=== PATIENT | male | born 1965 | race African-American/Black ===

== ENCOUNTER 2019-03-04 13:39 | Inpatient (IN) | payer OTHER ==
[2019-03-04 15:55] VITALS: BMI 24.7
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
--- NOTE | 2019-03-04 17:19 | PN ---
Teaching Attending Note Name of Resident: Amie Washington ATTENDING PHYSICIAN STATEMENT I saw and evaluated the patient. I reviewed the resident's note and discussed the case with the resident. I agree with the resident's findings and plan as documented. SUBJECTIVE: 53 yo with no medical problems no medications. Here for heroin and alcohol detox- inhaling, about 5 bags/day, was in methadone MAT- he left becuase he did not like to go every day and did not like the taste of Suboxone. Also uses alcohol several beers/day. Occ cocaine use. JEANIE-0.68 OBJECTIVE: Vital Signs - 24 hr 03/04/19 15:42 Temperature 97.8 F Pulse Rate 75 Respiratory 18 Rate Blood Pressure 115/73 alert and oriented tremulous ASSESSMENT AND PLAN: Opioid use disorder- will start methadone detox alcohol use-pt with CIWA score of 0. will give prn Klonopin and if pt starts with withdrawals and high CIWA score- can start librium detox
[2019-03-04] MEDS ORDERED: METHOCARBAMOL 500 MG TABLET PO PRN (17:24)
[2019-03-04] MEDS ORDERED: MAGNESIUM CITRATE 300 ML BOTTLE PO PRN (17:24)
[2019-03-04] MEDS ORDERED: MAGNESIUM HYDROX 2400MG/30ML ORAL SUSPENSION 30 ML CUP PO PRN (17:24)
[2019-03-04] MEDS ORDERED: ACETAMINOPHEN 325 MG TABLET (FP) PO PRN ×2 (17:24)
[2019-03-04] MEDS ORDERED: BISMUTH SUBSALICYLATE 524 MG/30 ML UD PO PRN (17:24)
[2019-03-04] MEDS ORDERED: hydrOXYzine PAMOATE 25 MG CAPSULE (FP) PO PRN (17:24)
[2019-03-04] MEDS ORDERED: IBUPROFEN 400 MG TABLET (FP) PO PRN (17:24)
[2019-03-04] MEDS ORDERED: MAG HYDROX/AL HYDROX/SIMETH 30 ML UNIT-DOSE CUP PO PRN (17:24)
[2019-03-04] MEDS ORDERED: MENTHOL/PHENOL 1 EACH UD MM PRN (17:24)
[2019-03-04] MEDS ORDERED: clonazePAM 0.5 MG TABLET PO PRN (17:33)
[2019-03-04] MEDS ORDERED: METHADONE HCL 10 MG TABLET (FOR DETOX USE ONLY) PO ONE (18:00)
[2019-03-04] MEDS: MELATONIN 5 MG TABLETS PO PRN (22:24)
[2019-03-04] MEDS: THIAMINE HCL 100 MG TABLET (FP) PO SCH (22:24)
[2019-03-05] MEDS ORDERED: METHADONE HCL 10 MG TABLET (FOR DETOX USE ONLY) ONE (09:51)
[2019-03-05] MEDS ORDERED: METHADONE HCL 5 MG TABLET (FOR DETOX USE ONLY) ONE (09:51)
[2019-03-05 09:59] LABS: HEMATOCRIT 38.5 % (35.4-49); MCH 30.1 pg (25.7-33.7); MCHC 33.7 g/dl (32.0-35.9); MEAN CELL VOLUME 89.3 fl (80-96); MEAN PLT VOLUME 8.7 fl (7.5-11.1); PLATELET COUNT 168 K/MM3 (134-434); RBC 4.32 M/mm3 (4.00-5.60); RDW 13.3 % (11.9-15.9); WHITE BLOOD COUNT 3.2 K/mm3 (4.0-10.0)
[2019-03-05] MEDS ORDERED: METHADONE (DETOX) 20 MG, METHADONE (DETOX) 5 MG PO ONE (10:00)
[2019-03-05 10:10] LABS: ALBUMIN 3.3 g/dl (3.4-5.0); BILIRUBIN,TOTAL 0.7 mg/dL (0.2-1); BLOOD UREA NITROGEN 12.3 mg/dL (7-18); CALCIUM 8.8 mg/dL (8.5-10.1); TOT PROT 6.5 g/dl (6.4-8.2)
[2019-03-05] MEDS: PRENATAL VITAMINS W/ FOLIC ACID TABLET (FP) PO SCH (10:40)
--- NOTE | 2019-03-05 13:08 | PN ---
[facility] COWS - Scale Resting Pulse: 0= [place] 80 or Below Sweatin= Chills/Flushing Restless Observation: 0= Sits Still Pupil Size: 0= Normal to Room Light Bone or Joint Aches: 1= Mild Discomfort Runny Nose/ Eye Tearin= Nasal Congestion GI Upset > 30mins: 0= None Tremor Observation of Outstretched Hands: 1= Tremor [place], Not Seen Yawning Observation: 1= 1-2x During Session Anxiety or Irritability: 2=Irritable/Anxious Goose Flesh Skin: 0=Smooth Skin COWS Score: 7 [facility]HS Progress Note (SOAP) Subjective: agitation sweats mild shakes interrupted sleep Objective: 03/05/19 13:07 Vital Signs Temperature 97.5 F L 03/05/19 09:32 Pulse Rate 62 03/05/19 09:32 Respiratory Rate 18 03/05/19 09:32 Blood Pressure 155/75 03/05/19 09:32 O2 Sat by Pulse Oximetry (%) Laboratory Tests 03/05/19 03/05/19 03/05/19 08:00 08:00 08:00 WBC 3.2 L RBC 4.32 Hgb 13.0 Hct 38.5 MCV 89.3 MCH 30.1 MCHC 33.7 RDW 13.3 Plt Count 168 MPV 8.7 Sodium 142 Potassium 4.0 Chloride 105 Carbon Dioxide 32 Anion Gap 5 L BUN 12.3 Creatinine 1.0 Est GFR (CKD-EPI)AfAm 98.46 Est GFR (CKD-EPI)NonAf 84.95 Random Glucose 90 Calcium 8.8 Total Bilirubin 0.7 AST 20 ALT 17 Alkaline Phosphatase 70 Total Protein 6.5 Albumin 3.3 L RPR Titer Nonreactive labs noted aaox3 ambulating no acute distress Assessment: 03/05/19 13:07 withdrawal sx Plan: continue detox with ordered regimen increase fluids
--- NOTE | 2019-03-05 15:22 | EKG ---
Test Reason : Blood Pressure : / mmHG Vent. Rate : 058 BPM Atrial Rate : 058 BPM P-R Int : 192 ms QRS Dur : 092 ms QT Int : 464 ms P-R-T Axes : 059 032 015 degrees QTc Int : 455 ms SINUS BRADYCARDIA WITH SINUS ARRHYTHMIA OTHERWISE NORMAL ECG NO PREVIOUS ECGS AVAILABLE Confirmed by MD Sahil, Ariel ([id number]) on 03/05/2019 3:21:35 PM Referred By: CATRACHITA MCGOWAN Confirmed By:Ariel Baxter MD
[2019-03-05] MEDS: MELATONIN 5 MG TABLETS PO PRN (22:31)
[2019-03-05] MEDS: THIAMINE HCL 100 MG TABLET (FP) PO SCH (22:31)
[2019-03-06] MEDS ORDERED: METHADONE HCL 10 MG TABLET (FOR DETOX USE ONLY) PO ONE (10:00)
[2019-03-06] MEDS: PRENATAL VITAMINS W/ FOLIC ACID TABLET (FP) PO SCH (11:36)
[2019-03-06] MEDS ORDERED: cloNIDine HCL 0.1 MG TABLET PO PRN (16:10)
--- NOTE | 2019-03-06 16:10 | PN ---
[facility] COWS - Scale Resting Pulse: 0= [place] 80 or Below Sweatin= Chills/Flushing Restless Observation: 1= Difficult to Sit Still Pupil Size: 0= Normal to Room Light Bone or Joint Aches: 1= Mild Discomfort Runny Nose/ Eye Tearin= Runny Nose/Eyes GI Upset > 30mins: 1= Stomach Cramp Tremor Observation of Outstretched Hands: 2= Slight Tremor Visible Yawning Observation: 1= 1-2x During Session Anxiety or Irritability: 1=Feels Anxious/Irritable Goose Flesh Skin: 0=Smooth Skin COWS Score: 10 BHS Progress Note (SOAP) Subjective: Withdrawal symptoms controlled with medication Objective: 03/06/19 16:08 Last Vital Signs Temp Pulse Resp BP Pulse Ox 98.2 F 80 18 134/87 03/06/19 13:38 03/06/19 13:38 03/06/19 13:38 03/06/19 13:38 Elevated b/p noted (denies htn) Laboratory Tests 03/05/19 03/05/19 03/05/19 08:00 08:00 08:00 WBC 3.2 L RBC 4.32 Hgb 13.0 Hct 38.5 MCV 89.3 MCH 30.1 MCHC 33.7 RDW 13.3 Plt Count 168 MPV 8.7 Sodium 142 Potassium 4.0 Chloride 105 Carbon Dioxide 32 Anion Gap 5 L BUN 12.3 Creatinine 1.0 Est GFR (CKD-EPI)AfAm 98.46 Est GFR (CKD-EPI)NonAf 84.95 Random Glucose 90 Calcium 8.8 Total Bilirubin 0.7 AST 20 ALT 17 Alkaline Phosphatase 70 Total Protein 6.5 Albumin 3.3 L RPR Titer Nonreactive Labs reviewed Assessment: 03/06/19 16:09 Withdrawal sxs Elevated b/p noted Plan: Continue detox Encouraged PO water intake Elevated b/p: denies htn, start clonidine prn, avoid adding extra salt to food
[2019-03-06 17:26] VITALS: BP 146/85; PULSE 58; TEMP 98.4
--- NOTE | 2019-03-06 17:43 | PN ---
[facility] Progress Note Note: patient did not want to complete treatment,signed release ama
--- NOTE | 2019-03-06 17:45 | DS ---
[facility] Detox Discharge Summary Admission Date: 03/04/19 Discharge Date: 03/06/19 - History Present History: Alcohol Dependence, Cocaine Dependence, Opioid Dependence Additional Comments: patient left AMA - Physical Exam Results Vital Signs: Vital Signs Temperature 98.4 F 03/06/19 17:25 Pulse Rate 58 L 03/06/19 17:25 Respiratory Rate 18 03/06/19 17:25 Blood Pressure 146/85 03/06/19 17:25 O2 Sat by Pulse Oximetry (%) Pertinent Admission Physical Exam Findings: withdrawal sign and symptom Laboratory Last Values WBC 3.2 K/mm3 (4.0-10.0) L 03/05/19 08:00 RBC 4.32 M/mm3 (4.00-5.60) 03/05/19 08:00 Hgb 13.0 GM/dL (11.7-16.9) 03/05/19 08:00 Hct 38.5 % (35.4-49) 03/05/19 08:00 MCV 89.3 fl (80-96) 03/05/19 08:00 MCH 30.1 pg (25.7-33.7) 03/05/19 08:00 MCHC 33.7 g/dl (32.0-35.9) 03/05/19 08:00 RDW 13.3 % (11.9-15.9) 03/05/19 08:00 Plt Count 168 K/MM3 (134-434) 03/05/19 08:00 MPV 8.7 fl (7.5-11.1) 03/05/19 08:00 Sodium 142 mmol/L (136-145) 03/05/19 08:00 Potassium 4.0 mmol/L (3.5-5.1) 03/05/19 08:00 Chloride 105 mmol/L (98-107) 03/05/19 08:00 Carbon Dioxide 32 mmol/L (21-32) 03/05/19 08:00 Anion Gap 5 MMOL/L (8-16) L 03/05/19 08:00 BUN 12.3 mg/dL (7-18) 03/05/19 08:00 Creatinine 1.0 mg/dL (0.55-1.3) 03/05/19 08:00 Est GFR (CKD-EPI)AfAm 98.46 03/05/19 08:00 Est GFR (CKD-EPI)NonAf 84.95 03/05/19 08:00 Random Glucose 90 mg/dL (74-106) 03/05/19 08:00 Calcium 8.8 mg/dL (8.5-10.1) 03/05/19 08:00 Total Bilirubin 0.7 mg/dL (0.2-1) 03/05/19 08:00 AST 20 U/L (15-37) 03/05/19 08:00 ALT 17 U/L (13-61) 03/05/19 08:00 Alkaline Phosphatase 70 U/L (45-117) 03/05/19 08:00 Total Protein 6.5 g/dl (6.4-8.2) 03/05/19 08:00 Albumin 3.3 g/dl (3.4-5.0) L 03/05/19 08:00 RPR Titer Nonreactive (NONREACTIVE) 03/05/19 08:00 Vital Signs Temperature 98.4 F 03/06/19 17:25 Pulse Rate 58 L 03/06/19 17:25 Respiratory Rate 18 03/06/19 17:25 Blood Pressure 146/85 03/06/19 17:25 O2 Sat by Pulse Oximetry (%) - Medication Discharge Medications: Ambulatory Orders NK [No Known Home Medication] 03/04/19 - AMA Did Patient Leave Against Medical Advice: Yes
[2019-03-07] MEDS ORDERED: METHADONE (DETOX) 10 MG, METHADONE (DETOX) 5 MG PO ONE (10:00)
[2019-03-08] MEDS ORDERED: METHADONE HCL 10 MG TABLET (FOR DETOX USE ONLY) PO ONE (10:00)
[2019-03-09] MEDS ORDERED: METHADONE HCL 5 MG TABLET (FOR DETOX USE ONLY) PO ONE (06:00)
== END 2019-03-06 17:53 | disposition left against medical advice (07) | DRG 770 ==
LOC: YASAS 13:39 → Y6N 17:47
PROVIDERS: ADMIT Surgery; ATTEND Surgery
PROC: HZ2ZZZZ Detoxification Services for Substance Abuse Treatment (ICD-10-PCS; principal; 2019-03-04)
DX: F11.23 Opioid dependence with withdrawal (principal); F10.230 Alcohol dependence with withdrawal, uncomplicated; F14.10 Cocaine abuse, uncomplicated; R03.0 Elevated blood-pressure reading, without diagnosis of hypertension; Z59.0 Homelessness
CPT/HCPCS: 36415; 80053; 85027; 86593; 93005; 93010

== ENCOUNTER 2019-07-22 16:26 | Inpatient (IN) | payer OTHER ==
[2019-07-22 17:56] VITALS: BMI 29.9
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
[2019-07-22] MEDS ORDERED: MAG HYDROX/AL HYDROX/SIMETH 30 ML UNIT-DOSE CUP PO PRN (18:54)
[2019-07-22] MEDS ORDERED: MAGNESIUM HYDROX 2400MG/30ML ORAL SUSPENSION 30 ML CUP PO PRN (18:54)
[2019-07-22] MEDS ORDERED: ONDANSETRON *ODT* 4 MG TABLET SL PRN (18:54)
[2019-07-22] MEDS ORDERED: BISMUTH SUBSALICYLATE 524 MG/30 ML UD PO PRN (18:54)
[2019-07-22] MEDS ORDERED: chlordiazePOXIDE HCL 25 MG CAPSULE PO PRN (18:54)
[2019-07-22] MEDS ORDERED: hydrOXYzine PAMOATE 25 MG CAPSULE (FP) PO PRN (18:54)
[2019-07-22] MEDS ORDERED: cloNIDine HCL 0.1 MG TABLET PO PRN (18:54)
[2019-07-22] MEDS ORDERED: MENTHOL/PHENOL 1 EACH UD MM PRN (18:54)
[2019-07-22] MEDS ORDERED: METHOCARBAMOL 500 MG TABLET PO PRN (18:54)
[2019-07-22] MEDS ORDERED: ACETAMINOPHEN 325 MG TABLET (FP) PO PRN ×2 (18:54)
[2019-07-22] MEDS ORDERED: METHADONE HCL 10 MG TABLET (FOR DETOX USE ONLY) PO ONE (18:54)
[2019-07-22] MEDS ORDERED: guaiFENesin 200 MG/10 ML 10 ML UNIT-DOSE CUPS PO PRN (18:54)
[2019-07-22] MEDS ORDERED: DICYCLOMINE HCL 10 MG CAPSULE PO PRN (18:54)
[2019-07-22] MEDS ORDERED: NALOXONE HCL 0.4 MG/ML VIAL IM PRN (18:54)
[2019-07-22] MEDS ORDERED: P-EPHED 60MG/TRIPROLIDI 2.5MG TABLET PO PRN (18:54)
[2019-07-22] MEDS ORDERED: MAGNESIUM CITRATE 300 ML BOTTLE PO PRN (18:54)
[2019-07-22] MEDS ORDERED: IBUPROFEN 400 MG TABLET (FP) PO PRN (18:54)
[2019-07-22] MEDS ORDERED: MELATONIN 5 MG TABLETS PO PRN (22:00)
[2019-07-22] MEDS: THIAMINE HCL 100 MG TABLET (FP) PO SCH (22:08)
[2019-07-22] MEDS: chlordiazePOXIDE HCL 25 MG CAPSULE PO SCH (22:09)
[2019-07-23] MEDS: chlordiazePOXIDE HCL 25 MG CAPSULE PO SCH ×4 (06:19→22:32)
[2019-07-23] MEDS ORDERED: METHADONE HCL 5 MG TABLET (FOR DETOX USE ONLY) ONE (09:34)
[2019-07-23] MEDS ORDERED: METHADONE HCL 10 MG TABLET (FOR DETOX USE ONLY) ONE (09:34)
[2019-07-23] MEDS ORDERED: METHADONE (DETOX) 20 MG, METHADONE (DETOX) 5 MG PO ONE (10:00)
[2019-07-23] MEDS: PRENATAL VITAMINS W/ FOLIC ACID TABLET (FP) PO SCH (11:00)
[2019-07-23 12:31] LABS: HEMATOCRIT 38.4 % (35.4-49); HEMOGLOBIN 12.7 GM/dL (11.7-16.9); MCH 29.5 pg (25.7-33.7); MEAN CELL VOLUME 89.2 fl (80-96); MEAN PLT VOLUME 8.7 fl (7.5-11.1); PLATELET COUNT 219 K/MM3 (134-434); RDW 13.2 % (11.9-15.9); WHITE BLOOD COUNT 2.6 K/mm3 (4.0-10.0)
--- NOTE | 2019-07-23 12:48 | PN ---
[facility] CIWA - CIWA Score Nausea/Vomitin-No Nausea/No Vomiting Muscle Tremors: 2 Anxiety: 3 Agitation: 2 Paroxysmal Sweats: No Perspiration Orientation: 0-Oriented Tacttile Disturbances: 0-None Auditory Disturbances: 2-Mild Harshness/Frighten Visual Disturbances: 0-None Headache: 0-None Present CIWA-Ar Total Score: 9 S COWS - Scale Resting Pulse: 0= [place] 80 or Below Sweatin= No chills or Flushing Restless Observation: 0= Sits Still Pupil Size: 0= Normal to Room Light Bone or Joint Aches: 2= Severe Diffuse Aches Runny Nose/ Eye Tearin= None GI Upset > 30mins: 0= None Tremor Observation of Outstretched Hands: 2= Slight Tremor Visible Yawning Observation: 1= 1-2x During Session Anxiety or Irritability: 2=Irritable/Anxious Goose Flesh Skin: 3=Piloerection COWS Score: 10 S Progress Note (SOAP) Subjective: Body Aches, Anxious Fatigue. Objective: PATIENT A & O X 3, OBSERVED AMBULATING ON UNIT UNASSISTED. IN NO ACUTE DISTRESS. 07/23/19 12:50 Vital Signs Temperature 97.7 F 07/23/19 09:25 Pulse Rate 59 L 07/23/19 09:25 Respiratory Rate 18 07/23/19 09:25 Blood Pressure 141/83 07/23/19 09:25 O2 Sat by Pulse Oximetry (%) RESULTS OF DETOX ADMISSION LABS PENDING. 07/23/19 12:51 Assessment: 07/23/19 12:51 WITHDRAWAL SYMPTOMS. Plan: CONTINUE DETOX.
[2019-07-23 13:03] LABS: ALBUMIN 3.1 g/dl (3.4-5.0); BLOOD UREA NITROGEN 11.9 mg/dL (7-18); CALCIUM 8.6 mg/dL (8.5-10.1); CREATININE 0.9 mg/dL (0.55-1.3); POTASSIUM 3.9 mmol/L (3.5-5.1); TOT PROT 6.4 g/dl (6.4-8.2)
--- NOTE | 2019-07-23 16:58 | CONSULT ---
[facility] Psychiatric Consult - Data Date of interview: 07/23/19 Admission source: [facility] Identifying data: Patient is approached at bedside for psychiatric evaluation. Mr Samaniego, politely, declines to be interviewed. " I told them that I did not need to talk to psychiatrists. I am fine. Thanks for coming." Patient is observed resting comfortably in bed. Fully awake and conversant. No evidence of distress.
[2019-07-23] MEDS: THIAMINE HCL 100 MG TABLET (FP) PO SCH (22:32)
[2019-07-24] MEDS: chlordiazePOXIDE HCL 25 MG CAPSULE PO SCH ×4 (06:50→23:33)
[2019-07-24] MEDS ORDERED: METHADONE HCL 10 MG TABLET (FOR DETOX USE ONLY) PO ONE (10:00)
[2019-07-24] MEDS: PRENATAL VITAMINS W/ FOLIC ACID TABLET (FP) PO SCH (10:31)
--- NOTE | 2019-07-24 14:36 | PN ---
[facility] CIWA - CIWA Score Nausea/Vomitin-Mild Nausea/No Vomiting Muscle Tremors: 2 Anxiety: 2 Agitation: 2 Paroxysmal Sweats: 2 Orientation: 0-Oriented Tacttile Disturbances: 0-None Auditory Disturbances: 0-None Visual Disturbances: 0-None Headache: 0-None Present CIWA-Ar Total Score: 9 BHS COWS - Scale Resting Pulse: 1= [place] 81-100 Sweatin= Chills/Flushing Restless Observation: 1= Difficult to Sit Still Pupil Size: 0= Normal to Room Light Bone or Joint Aches: 1= Mild Discomfort Runny Nose/ Eye Tearin= Runny Nose/Eyes GI Upset > 30mins: 0= None Tremor Observation of Outstretched Hands: 2= Slight Tremor Visible Yawning Observation: 0= None Anxiety or Irritability: 1=Feels Anxious/Irritable Goose Flesh Skin: 0=Smooth Skin COWS Score: 9 BHS Progress Note (SOAP) Subjective: Feels ok, medication helpful Objective: 07/24/19 14:34 Last Vital Signs Temp Pulse Resp BP Pulse Ox 98.4 F 96 H 18 139/78 07/24/19 13:34 07/24/19 13:34 07/24/19 13:34 07/24/19 13:34 Elevated b/p noted: denies htn, on clondine prn Laboratory Tests 07/23/19 07/23/19 07/23/19 07:30 07:30 07:30 WBC 2.6 L RBC 4.30 Hgb 12.7 Hct 38.4 MCV 89.2 MCH 29.5 MCHC 33.0 RDW 13.2 Plt Count 219 D MPV 8.7 Sodium 140 Potassium 3.9 Chloride 107 Carbon Dioxide 29 Anion Gap 5 L BUN 11.9 Creatinine 0.9 Est GFR (CKD-EPI)AfAm 111.83 Est GFR (CKD-EPI)NonAf 96.49 Random Glucose 99 Calcium 8.6 Total Bilirubin 1.0 AST 17 ALT 15 Alkaline Phosphatase 81 Total Protein 6.4 Albumin 3.1 L RPR Titer Nonreactive Labs reviewed Assessment: 07/24/19 14:38 Withdrawal sxs Noted with elevated b/p Plan: Continue detox Encouraged PO water intake Elevated b/p: denies HTN, on clonidine prn
[2019-07-24] MEDS: THIAMINE HCL 100 MG TABLET (FP) PO SCH (23:33)
[2019-07-25] MEDS ORDERED: chlordiazePOXIDE HCL 10 MG CAPSULE PO PRN
[2019-07-25] MEDS: chlordiazePOXIDE HCL 10 MG CAPSULE PO SCH ×2 (06:15→10:11)
[2019-07-25] MEDS ORDERED: METHADONE HCL 5 MG TABLET (FOR DETOX USE ONLY) ONE (09:43)
[2019-07-25] MEDS ORDERED: METHADONE HCL 10 MG TABLET (FOR DETOX USE ONLY) ONE (09:43)
[2019-07-25] MEDS ORDERED: METHADONE (DETOX) 10 MG, METHADONE (DETOX) 5 MG PO ONE (10:00)
[2019-07-25] MEDS: PRENATAL VITAMINS W/ FOLIC ACID TABLET (FP) PO SCH (10:10)
--- NOTE | 2019-07-25 11:56 | PN ---
[facility] CIWA - CIWA Score Nausea/Vomitin Muscle Tremors: 2 Anxiety: 2 Agitation: 1-Slight > Activity Paroxysmal Sweats: No Perspiration Orientation: 0-Oriented Tacttile Disturbances: 1-Very Mild Itch/Numbness Auditory Disturbances: 0-None Visual Disturbances: 0-None Headache: 1-Very Mild CIWA-Ar Total Score: 9 BHS COWS - Scale Resting Pulse: 0= [place] 80 or Below Sweatin= No chills or Flushing Restless Observation: 1= Difficult to Sit Still Pupil Size: 0= Normal to Room Light Bone or Joint Aches: 1= Mild Discomfort Runny Nose/ Eye Tearin= Nasal Congestion GI Upset > 30mins: 1= Stomach Cramp Tremor Observation of Outstretched Hands: 1= Tremor [place], Not Seen Yawning Observation: 1= 1-2x During Session Anxiety or Irritability: 2=Irritable/Anxious Goose Flesh Skin: 0=Smooth Skin COWS Score: 8 BHS Progress Note (SOAP) Subjective: alert,irritable,anxious,interrupted sleep,pain in the body Objective: 07/25/19 11:56 Vital Signs Temperature 97.5 F L 07/25/19 09:10 Pulse Rate 65 07/25/19 09:10 Respiratory Rate 16 07/25/19 09:10 Blood Pressure 139/83 07/25/19 09:10 O2 Sat by Pulse Oximetry (%) Assessment: 07/25/19 11:56 withdrawal symptom Plan: continue detox methadone and librium regimen
[2019-07-25 14:05] VITALS: BP 131/84; PULSE 66; TEMP 98.2
--- NOTE | 2019-07-25 15:49 | PN ---
[facility] Progress Note Note: patient did not want to complete treatment ,all attempts to convince patient to say with no avail,patient understood,signed release ama,advise to call 911 if not feeling well
--- NOTE | 2019-07-25 15:52 | DS ---
[facility] Detox Discharge Summary Admission Date: 07/22/19 Discharge Date: 07/25/19 - History Present History: Alcohol Dependence, Cocaine Dependence, Opioid Dependence Additional Comments: patient signed release ama - Physical Exam Results Vital Signs: Vital Signs Temperature 98.2 F 07/25/19 14:04 Pulse Rate 66 07/25/19 14:04 Respiratory Rate 20 07/25/19 14:04 Blood Pressure 131/84 07/25/19 14:04 O2 Sat by Pulse Oximetry (%) Pertinent Admission Physical Exam Findings: withdrawal signs and symptom Laboratory Last Values WBC 2.6 K/mm3 (4.0-10.0) L 07/23/19 07:30 RBC 4.30 M/mm3 (4.00-5.60) 07/23/19 07:30 Hgb 12.7 GM/dL (11.7-16.9) 07/23/19 07:30 Hct 38.4 % (35.4-49) 07/23/19 07:30 MCV 89.2 fl (80-96) 07/23/19 07:30 MCH 29.5 pg (25.7-33.7) 07/23/19 07:30 MCHC 33.0 g/dl (32.0-35.9) 07/23/19 07:30 RDW 13.2 % (11.9-15.9) 07/23/19 07:30 Plt Count 219 K/MM3 (134-434) D 07/23/19 07:30 MPV 8.7 fl (7.5-11.1) 07/23/19 07:30 Sodium 140 mmol/L (136-145) 07/23/19 07:30 Potassium 3.9 mmol/L (3.5-5.1) 07/23/19 07:30 Chloride 107 mmol/L (98-107) 07/23/19 07:30 Carbon Dioxide 29 mmol/L (21-32) 07/23/19 07:30 Anion Gap 5 MMOL/L (8-16) L 07/23/19 07:30 BUN 11.9 mg/dL (7-18) 07/23/19 07:30 Creatinine 0.9 mg/dL (0.55-1.3) 07/23/19 07:30 Est GFR (CKD-EPI)AfAm 111.83 07/23/19 07:30 Est GFR (CKD-EPI)NonAf 96.49 07/23/19 07:30 Random Glucose 99 mg/dL (74-106) 07/23/19 07:30 Calcium 8.6 mg/dL (8.5-10.1) 07/23/19 07:30 Total Bilirubin 1.0 mg/dL (0.2-1) 07/23/19 07:30 AST 17 U/L (15-37) 07/23/19 07:30 ALT 15 U/L (13-61) 07/23/19 07:30 Alkaline Phosphatase 81 U/L (45-117) 07/23/19 07:30 Total Protein 6.4 g/dl (6.4-8.2) 07/23/19 07:30 Albumin 3.1 g/dl (3.4-5.0) L 07/23/19 07:30 RPR Titer Nonreactive (NONREACTIVE) 07/23/19 07:30 - Medication Discharge Medications: Ambulatory Orders NK [No Known Home Medication] 03/04/19 - Diagnosis (1) Opioid dependence with withdrawal Current Visit: Yes Status: Acute (2) Alcohol dependence with withdrawal, uncomplicated Current Visit: Yes Status: Acute (3) Cocaine dependence, uncomplicated Current Visit: Yes Status: Acute - AMA Did Patient Leave Against Medical Advice: Yes
[2019-07-26] MEDS ORDERED: chlordiazePOXIDE HCL 10 MG CAPSULE PO SCH (05:00)
[2019-07-26] MEDS ORDERED: METHADONE HCL 10 MG TABLET (FOR DETOX USE ONLY) PO ONE (10:00)
[2019-07-27] MEDS ORDERED: chlordiazePOXIDE HCL 10 MG CAPSULE PO ONE (05:00)
[2019-07-27] MEDS ORDERED: METHADONE HCL 5 MG TABLET (FOR DETOX USE ONLY) PO ONE (06:00)
== END 2019-07-25 15:58 | disposition left against medical advice (07) | DRG 770 ==
LOC: YASAS 16:26 → Y6N 19:28
PROVIDERS: ADMIT Allergy & Immunology; ATTEND Allergy & Immunology
PROC: HZ2ZZZZ Detoxification Services for Substance Abuse Treatment (ICD-10-PCS; principal; 2019-07-22)
DX: F11.23 Opioid dependence with withdrawal (principal); F10.230 Alcohol dependence with withdrawal, uncomplicated; F14.20 Cocaine dependence, uncomplicated; F32.9 Major depressive disorder, single episode, unspecified; R03.0 Elevated blood-pressure reading, without diagnosis of hypertension; Z59.0 Homelessness
CPT/HCPCS: 36415; 80053; 85027; 86593

== ENCOUNTER 2020-02-03 11:12 | Inpatient (IN) | payer OTHER ==
--- NOTE | 2020-02-03 11:58 | BHS.RME ---
Substance Use & Tx History - Substance Use History Heroin Substance amount: 9-10 bags Frequency of use: Daily Substance route: Inhalation (ex: sniffing or snorting) Date of Last Use: 02/03/20 Xanax Substance amount: 2m 2-3 tabs Frequency of use: Daily Substance route: Oral Date of Last Use: 02/02/20 Physical/Psych/Mental Status - Behavior General Behavior: Increased activity (restlessness, agitation) Eye Contact: Normal - Cooperativeness Cooperativeness: Cooperative - Thinking Thought Processes: Tight, Logical, Goal Directed - Physical Health Problems Is patient presently having any pain?: No Does patient presently have any injuries (include location): No Does patient currently have a fever: No Is patient : No COWS - Scale Resting Pulse: 0= [place] 80 or Below Sweatin= Chills/Flushing Restless Observation: 3= Extraneous Movement Pupil Size: 1= Pupils >than Normal Bone or Joint Aches: 0= None Runny Nose/ Eye Tearin= None GI Upset > 30mins: 0= None Tremor Observation: 0= None Yawning Observation: 2= >3x During Session Anxiety or Irritability: 2=Irritable/Anxious Goose Flesh Skin: 3=Piloerection COWS Score: 12
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
[2020-02-03 12:42] VITALS: BMI 22.7
[2020-02-03] MEDS ORDERED: BISMUTH SUBSALICYLATE 262 MG/15 ML BTL PO PRN (12:53)
[2020-02-03] MEDS ORDERED: MENTHOL/PHENOL 1 EACH UD MM PRN (12:53)
[2020-02-03] MEDS ORDERED: ONDANSETRON *ODT* 4 MG TABLET SL ONE (12:53)
[2020-02-03] MEDS ORDERED: IBUPROFEN 400 MG TABLET (FP) PO PRN (12:53)
[2020-02-03] MEDS ORDERED: MAGNESIUM HYDROX 2400MG/30ML ORAL SUSPENSION 30 ML CUP PO PRN (12:53)
[2020-02-03] MEDS ORDERED: cloNIDine HCL 0.1 MG TABLET PO PRN (12:53)
[2020-02-03] MEDS ORDERED: ACETAMINOPHEN 325 MG TABLET (FP) PO PRN ×2 (12:53)
[2020-02-03] MEDS ORDERED: NICOTINE POLACRILEX 2 MG GUM BUC PRN (12:53)
[2020-02-03] MEDS ORDERED: MAGNESIUM CITRATE 300 ML BOTTLE PO PRN (12:53)
[2020-02-03] MEDS ORDERED: MAG HYDROX/AL HYDROX/SIMETH 30 ML UNIT-DOSE CUP PO PRN (12:53)
[2020-02-03] MEDS ORDERED: METHADONE HCL 10 MG TABLET (FOR DETOX USE ONLY) PO ONE (12:53)
[2020-02-03] MEDS ORDERED: METHOCARBAMOL 500 MG TABLET PO PRN (12:53)
[2020-02-03] MEDS: NICOTINE 7 MG/24 HOURS TOPICAL PATCH TD SCH (13:41)
[2020-02-03] MEDS: PRENATAL VITAMINS W/ FOLIC ACID TABLET (FP) PO SCH (13:41)
[2020-02-03] MEDS: hydrOXYzine PAMOATE 25 MG CAPSULE (FP) PO SCH ×3 (13:41→22:34)
[2020-02-03 15:39] LABS: MCH 28.7 pg (25.7-33.7); MCHC 32.4 g/dl (32.0-35.9); MEAN CELL VOLUME 88.7 fl (80-96); MEAN PLT VOLUME 8.6 fl (7.5-11.1); PLATELET COUNT 207 K/MM3 (134-434); RBC 4.51 M/mm3 (4.00-5.60); WHITE BLOOD COUNT 2.6 K/mm3 (4.0-10.0)
[2020-02-03 15:55] LABS: BLOOD UREA NITROGEN 9.7 mg/dL (7-18); CALCIUM 8.9 mg/dL (8.5-10.1); TOT PROT 7.5 g/dl (6.4-8.2)
[2020-02-03 15:57] LABS: BILIRUBIN,TOTAL 0.7 mg/dL (0.2-1); CREATININE 0.9 mg/dL (0.55-1.3)
--- NOTE | 2020-02-03 17:15 | CONSULT ---
[facility] Psychiatric Consult - Data Date of interview: 02/03/20 Admission source: [facility] Identifying data: Revisit to [facility] and admission to [address] [place] [address] for this 54 y/o AA male self-referred for detoxification treatment. DARY issues : heroin, benzodiazepine (xanax). Patient is , father of five, domiciled (lives with sister), unemployed and supported on odd jobs. Substance Abuse History: Discussed with the patient. DARY profile as follows : Smoking history: Never smoked. Have you smoked in the past 12 months: No. Hx Chewing Tobacco Use: No. Initiated information on smoking cessation: Yes. 'Breaking Loose' booklet given: 02/03/20. - Substances abused. Heroin. Substance route: Inhalation. Frequency: Daily. Amount used: 9-10 bags. Age of first use: 30. Date of last use: 02/03/20. Alprazolam (Xanax). Substance route: Oral. Frequency: Daily. Amount used: 2m 2-3 tabs. Age of first use: 54. Date of last use: 02/03/20 Medical History: Medical profile is remarkable for diabetes mellitus (borderli ne). Psychiatric History: Patient denies history of psychiatric hospitalizations, OPD care or suicide attempts. Physical/Sexual Abuse/Trauma History: Patient denies. Additional Comment: Urine drug screen results: MARTINEZ-Cocaine, FEN-Fentanyl, MOP- Opiates, BZO-Benzodiazepines. Noted. Mental Status Exam - Mental Status Exam Alert and Oriented to: Time, Place, Person Cognitive Function: Good Patient Appearance: Well Groomed Mood: Hopeful, Euthymic Affect: Appropriate, Normal Range Patient Behavior: Fatigued, Appropriate, Cooperative Speech Pattern: Clear, Appropriate Voice Loudness: Normal Thought Process: Intact, Goal Oriented Thought Disorder: Not Present Hallucinations: Denies Suicidal Ideation: Denies Homicidal Ideation: Denies Insight/Judgement: Poor Sleep: Well Appetite: Good Gait/Station: Normal Psychiatric Findings - Problem List ([place] 1, 2,3) (1) Opioid dependence with withdrawal Current Visit: Yes Status: Acute - Initial Treatment Plan Initial Treatment Plan: Psychoeducation. Sleep hygiene. Detoxification. Support. Observation.
[2020-02-03] MEDS: MELATONIN 5 MG TABLETS PO SCH (22:33)
[2020-02-03] MEDS: THIAMINE HCL 100 MG TABLET (FP) PO SCH (22:34)
[2020-02-04] MEDS: hydrOXYzine PAMOATE 25 MG CAPSULE (FP) PO SCH ×5 (06:44→22:22)
[2020-02-04] MEDS ORDERED: METHADONE HCL 10 MG TABLET (FOR DETOX USE ONLY) ONE (09:16)
[2020-02-04] MEDS ORDERED: METHADONE HCL 5 MG TABLET (FOR DETOX USE ONLY) ONE (09:16)
[2020-02-04] MEDS ORDERED: METHADONE (DETOX) 20 MG, METHADONE (DETOX) 5 MG PO ONE (10:00)
[2020-02-04] MEDS: NICOTINE 7 MG/24 HOURS TOPICAL PATCH TD SCH (10:20)
[2020-02-04] MEDS: PRENATAL VITAMINS W/ FOLIC ACID TABLET (FP) PO SCH (10:20)
--- NOTE | 2020-02-04 13:32 | PN ---
S COWS - Scale Resting Pulse: 0= [place] 80 or Below Sweatin= Beads of Sweat on Face Restless Observation: 1= Difficult to Sit Still Pupil Size: 0= Normal to Room Light Bone or Joint Aches: 2= Severe Diffuse Aches Runny Nose/ Eye Tearin= None GI Upset > 30mins: 0= None Tremor Observation of Outstretched Hands: 0= None Yawning Observation: 1= 1-2x During Session Anxiety or Irritability: 2=Irritable/Anxious Goose Flesh Skin: 0=Smooth Skin COWS Score: 9 S Progress Note (SOAP) Subjective: c/o irritability, anxiety, muscle aches, and sweats. Objective: 02/04/20 13:32 Vital Signs 02/04/20 02/04/20 02/04/20 06:26 08:38 13:02 Temperature 97.2 F L 97.4 F L 97.3 F L Pulse Rate 61 59 L 61 Respiratory 18 16 18 Rate Blood Pressure 130/82 129/78 107/65 O2 Sat by Pulse 100 99 Oximetry (%) Laboratory Last Values WBC 2.6 K/mm3 (4.0-10.0) L 02/03/20 13:00 RBC 4.51 M/mm3 (4.00-5.60) 02/03/20 13:00 Hgb 13.0 GM/dL (11.7-16.9) 02/03/20 13:00 Hct 40.0 % (35.4-49) 02/03/20 13:00 MCV 88.7 fl (80-96) 02/03/20 13:00 MCH 28.7 pg (25.7-33.7) 02/03/20 13:00 MCHC 32.4 g/dl (32.0-35.9) 02/03/20 13:00 RDW 14.0 % (11.9-15.9) 02/03/20 13:00 Plt Count 207 K/MM3 (134-434) 02/03/20 13:00 MPV 8.6 fl (7.5-11.1) 02/03/20 13:00 Sodium 141 mmol/L (136-145) 02/03/20 13:00 Potassium 4.0 mmol/L (3.5-5.1) 02/03/20 13:00 Chloride 104 mmol/L (98-107) 02/03/20 13:00 Carbon Dioxide 30 mmol/L (21-32) 02/03/20 13:00 Anion Gap 7 MMOL/L (8-16) L 02/03/20 13:00 BUN 9.7 mg/dL (7-18) 02/03/20 13:00 Creatinine 0.9 mg/dL (0.55-1.3) 02/03/20 13:00 Est GFR (CKD-EPI)AfAm 111.05 02/03/20 13:00 Est GFR (CKD-EPI)NonAf 95.81 02/03/20 13:00 POC Glucometer 86 UNITS (80-120) 02/04/20 06:31 Random Glucose 84 mg/dL (74-106) 02/03/20 13:00 Calcium 8.9 mg/dL (8.5-10.1) 02/03/20 13:00 Total Bilirubin 0.7 mg/dL (0.2-1) 02/03/20 13:00 AST 18 U/L (15-37) 02/03/20 13:00 ALT 19 U/L (13-61) 02/03/20 13:00 Alkaline Phosphatase 91 U/L (45-117) 02/03/20 13:00 Total Protein 7.5 g/dl (6.4-8.2) 02/03/20 13:00 Albumin 4.0 g/dl (3.4-5.0) 02/03/20 13:00 Syphilis Serology Non-reactive (NONREACTIVE) 02/03/20 13:00 HIV Ag/Ab Combo Qual Negative (NEGATIVE) 02/03/20 13:00 Labs noted. Assessment: 02/04/20 13:32 AOx 3, in no acute respiratory distress. Full ROM, ambulating in the unit. Withdrawal symptoms. Plan: continue detox.
[2020-02-04] MEDS: MELATONIN 5 MG TABLETS PO SCH (22:21)
[2020-02-04] MEDS: THIAMINE HCL 100 MG TABLET (FP) PO SCH (22:22)
[2020-02-05] MEDS: hydrOXYzine PAMOATE 25 MG CAPSULE (FP) PO SCH ×5 (06:21→22:09)
[2020-02-05] MEDS ORDERED: METHADONE HCL 10 MG TABLET (FOR DETOX USE ONLY) PO ONE (10:00)
[2020-02-05] MEDS: NICOTINE 7 MG/24 HOURS TOPICAL PATCH TD SCH (10:18)
[2020-02-05] MEDS: PRENATAL VITAMINS W/ FOLIC ACID TABLET (FP) PO SCH (10:19)
--- NOTE | 2020-02-05 11:57 | PN ---
BHS COWS - Scale Resting Pulse: 1= [place] 81-100 Sweatin= Chills/Flushing Restless Observation: 0= Sits Still Pupil Size: 1= Pupils >than Normal Bone or Joint Aches: 2= Severe Diffuse Aches Runny Nose/ Eye Tearin= None GI Upset > 30mins: 1= Stomach Cramp Tremor Observation of Outstretched Hands: 0= None Yawning Observation: 0= None Anxiety or Irritability: 1=Feels Anxious/Irritable Goose Flesh Skin: 0=Smooth Skin COWS Score: 7 BHS Progress Note (SOAP) Subjective: 54 years old male admitted on 02/03/20 for opiate withdrawal sx management treating with methadone detox regiment tremor sweating feeling tired resting in bed limited conversation with staff Objective: 02/05/20 11:56 Vital Signs - 24 hr 02/04/20 02/04/20 02/04/20 13:02 17:05 20:55 Temperature 97.3 F L 97.3 F L 97.3 F L Pulse Rate 61 59 L 86 Respiratory 18 16 16 Rate Blood Pressure 107/65 114/75 129/85 O2 Sat by Pulse 99 100 Oximetry (%) 02/05/20 02/05/20 06:26 08:54 Temperature 97.8 F 96.8 F L Pulse Rate 59 L 85 Respiratory 16 18 Rate Blood Pressure 122/74 119/73 O2 Sat by Pulse 100 Oximetry (%) Laboratory Tests 02/03/20 02/03/20 02/03/20 13:00 13:00 13:00 WBC 2.6 L RBC 4.51 Hgb 13.0 Hct 40.0 MCV 88.7 MCH 28.7 MCHC 32.4 RDW 14.0 Plt Count 207 MPV 8.6 Sodium 141 Potassium 4.0 Chloride 104 Carbon Dioxide 30 Anion Gap 7 L BUN 9.7 Creatinine 0.9 Est GFR (CKD-EPI)AfAm 111.05 Est GFR (CKD-EPI)NonAf 95.81 POC Glucometer Random Glucose 84 Calcium 8.9 Total Bilirubin 0.7 AST 18 ALT 19 Alkaline Phosphatase 91 Total Protein 7.5 Albumin 4.0 Syphilis Serology COVID-19 (HILARIA) HIV Ag/Ab Combo Qual Negative 02/03/20 02/03/20 02/04/20 13:00 13:00 06:31 WBC RBC Hgb Hct MCV MCH MCHC RDW Plt Count MPV Sodium Potassium Chloride Carbon Dioxide Anion Gap BUN Creatinine Est GFR (CKD-EPI)AfAm Est GFR (CKD-EPI)NonAf POC Glucometer 86 Random Glucose Calcium Total Bilirubin AST ALT Alkaline Phosphatase Total Protein Albumin Syphilis Serology Non-reactive COVID-19 (HILARIA) Not detected HIV Ag/Ab Combo Qual low wbc 02/05/20 11:57 chronic low wbc 02/05/20 11:58 repeat cbc Assessment: 02/05/20 11:59 opiate withdrawal Plan: methadone regiment
[2020-02-05] MEDS ORDERED: MASKS NR ONE (12:21)
[2020-02-05] MEDS: MELATONIN 5 MG TABLETS PO SCH (22:09)
[2020-02-05] MEDS: THIAMINE HCL 100 MG TABLET (FP) PO SCH (22:10)
[2020-02-06] MEDS: hydrOXYzine PAMOATE 25 MG CAPSULE (FP) PO SCH ×2 (06:40→10:29)
[2020-02-06] MEDS ORDERED: METHADONE HCL 5 MG TABLET (FOR DETOX USE ONLY) ONE (09:39)
[2020-02-06] MEDS ORDERED: METHADONE HCL 10 MG TABLET (FOR DETOX USE ONLY) ONE (09:39)
[2020-02-06] MEDS ORDERED: METHADONE (DETOX) 10 MG, METHADONE (DETOX) 5 MG PO ONE (10:00)
[2020-02-06] MEDS ORDERED: hydrOXYzine PAMOATE 25 MG CAPSULE (FP) PO PRN (10:01)
--- NOTE | 2020-02-06 10:04 | PN ---
BHS COWS - Scale Resting Pulse: 0= [place] 80 or Below Sweatin= No chills or Flushing Restless Observation: 0= Sits Still Pupil Size: 1= Pupils >than Normal Bone or Joint Aches: 1= Mild Discomfort Runny Nose/ Eye Tearin= None GI Upset > 30mins: 1= Stomach Cramp Tremor Observation of Outstretched Hands: 1= Tremor [place], Not Seen Yawning Observation: 0= None Anxiety or Irritability: 1=Feels Anxious/Irritable Goose Flesh Skin: 0=Smooth Skin COWS Score: 5 BHS Progress Note (SOAP) Subjective: 54 years old male admitted on 02/03/20 for opiate withdrawal sx management treating with methadone detox regiment bmi 22.7 ensure 120 ml po tid with meals feeling tired resting in bed limited conversation with staff Objective: 02/06/20 10:04 Vital Signs - 24 hr 02/05/20 02/05/20 02/05/20 13:00 17:26 20:36 Temperature 96.7 F L 97.7 F 97.4 F L Pulse Rate 81 63 60 Respiratory 18 18 18 Rate Blood Pressure 120/72 126/82 142/83 O2 Sat by Pulse 99 100 100 Oximetry (%) 02/06/20 02/06/20 06:09 08:48 Temperature 97.7 F 97.7 F Pulse Rate 58 L 64 Respiratory 16 18 Rate Blood Pressure 132/79 123/62 O2 Sat by Pulse 97 Oximetry (%) Laboratory Tests 02/03/20 02/03/20 02/03/20 13:00 13:00 13:00 WBC 2.6 L RBC 4.51 Hgb 13.0 Hct 40.0 MCV 88.7 MCH 28.7 MCHC 32.4 RDW 14.0 Plt Count 207 MPV 8.6 Sodium 141 Potassium 4.0 Chloride 104 Carbon Dioxide 30 Anion Gap 7 L BUN 9.7 Creatinine 0.9 Est GFR (CKD-EPI)AfAm 111.05 Est GFR (CKD-EPI)NonAf 95.81 POC Glucometer Random Glucose 84 Calcium 8.9 Total Bilirubin 0.7 AST 18 ALT 19 Alkaline Phosphatase 91 Total Protein 7.5 Albumin 4.0 Syphilis Serology COVID-19 (HILARIA) HIV Ag/Ab Combo Qual Negative 02/03/20 02/03/20 02/04/20 13:00 13:00 06:31 WBC RBC Hgb Hct MCV MCH MCHC RDW Plt Count MPV Sodium Potassium Chloride Carbon Dioxide Anion Gap BUN Creatinine Est GFR (CKD-EPI)AfAm Est GFR (CKD-EPI)NonAf POC Glucometer 86 Random Glucose Calcium Total Bilirubin AST ALT Alkaline Phosphatase Total Protein Albumin Syphilis Serology Non-reactive COVID-19 (HILARIA) Not detected HIV Ag/Ab Combo Qual 02/06/20 10:05 leukocytopenia lab noted Assessment: 02/06/20 10:05 opiate withdrawal below average bmi Plan: methadone regiment ensure 120 ml po tid with meals
[2020-02-06] MEDS: NICOTINE 7 MG/24 HOURS TOPICAL PATCH TD SCH (10:26)
[2020-02-06] MEDS: PRENATAL VITAMINS W/ FOLIC ACID TABLET (FP) PO SCH (10:27)
[2020-02-06] MEDS: MELATONIN 5 MG TABLETS PO SCH (23:08)
[2020-02-06] MEDS: THIAMINE HCL 100 MG TABLET (FP) PO SCH (23:09)
[2020-02-07 08:56] VITALS: BP 132/82; PULSE 72; TEMP 97.6
[2020-02-07] MEDS ORDERED: METHADONE HCL 10 MG TABLET (FOR DETOX USE ONLY) PO ONE (10:00)
[2020-02-07] MEDS: PRENATAL VITAMINS W/ FOLIC ACID TABLET (FP) PO SCH (10:16)
[2020-02-07] MEDS: NICOTINE 7 MG/24 HOURS TOPICAL PATCH TD SCH (10:16)
--- NOTE | 2020-02-07 10:31 | DS ---
[facility] Detox Discharge Summary Admission Date: 02/03/20 Discharge Date: 02/07/20 - History Present History: Opioid Dependence Additional Comments: 54 years old male admitted on 02/03/20 for opiate withdrawal sx management treated with methadone detox regiment seen by psychiatrist no medical intervention mr cevallos prefers to leave detox unit today instead of estimated discharge date of 02/08/20 alert oriented x 3 speech clearly coherently ambulating steady gaits respiratory clear lung sounds bilaterally on auscultation abdomen soft flat no rebound tenderness extremities full range of motion Pertinent Past History: time for discharge 38 minutes treatment team met with mr cevallos to discuss benefits of methadone completion reports feeling better today will consider success counseling service for opiate recovery as well as following up with Task force officer for opiate recovery - Physical Exam Results Vital Signs: Vital Signs Temperature 97.6 F 02/07/20 08:32 Pulse Rate 72 02/07/20 08:32 Respiratory Rate 18 02/07/20 08:32 Blood Pressure 132/82 02/07/20 08:32 O2 Sat by Pulse Oximetry (%) 100 02/07/20 05:50 Pertinent Admission Physical Exam Findings: opiate withdrawal Vital Signs - 24 hr 02/06/20 02/06/20 02/06/20 14:11 16:37 20:39 Temperature 97.7 F 97.5 F L Pulse Rate 59 L 59 L Respiratory 18 18 Rate Blood Pressure 133/85 132/78 O2 Sat by Pulse 100 100 Oximetry (%) 02/07/20 02/07/20 05:50 08:32 Temperature 98 F 97.6 F Pulse Rate 63 72 Respiratory 18 18 Rate Blood Pressure 131/75 132/82 O2 Sat by Pulse 100 Oximetry (%) Laboratory Tests 02/03/20 02/03/20 02/03/20 13:00 13:00 13:00 WBC 2.6 L RBC 4.51 Hgb 13.0 Hct 40.0 MCV 88.7 MCH 28.7 MCHC 32.4 RDW 14.0 Plt Count 207 MPV 8.6 Sodium 141 Potassium 4.0 Chloride 104 Carbon Dioxide 30 Anion Gap 7 L BUN 9.7 Creatinine 0.9 Est GFR (CKD-EPI)AfAm 111.05 Est GFR (CKD-EPI)NonAf 95.81 POC Glucometer Random Glucose 84 Calcium 8.9 Total Bilirubin 0.7 AST 18 ALT 19 Alkaline Phosphatase 91 Total Protein 7.5 Albumin 4.0 Syphilis Serology COVID-19 ([facility]) HIV Ag/Ab Combo Qual Negative 02/03/20 02/03/20 02/04/20 13:00 13:00 06:31 WBC RBC Hgb Hct MCV MCH MCHC RDW Plt Count MPV Sodium Potassium Chloride Carbon Dioxide Anion Gap BUN Creatinine Est GFR (CKD-EPI)AfAm Est GFR (CKD-EPI)NonAf POC Glucometer 86 Random Glucose Calcium Total Bilirubin AST ALT Alkaline Phosphatase Total Protein Albumin Syphilis Serology Non-reactive COVID-19 ([facility]) Not detected HIV Ag/Ab Combo Qual 02/07/20 08:15 WBC 3.2 L RBC 4.63 Hgb 13.3 Hct 40.3 MCV 87.1 MCH 28.8 MCHC 33.0 RDW 13.9 Plt Count 199 MPV 8.8 Sodium Potassium Chloride Carbon Dioxide Anion Gap BUN Creatinine Est GFR (CKD-EPI)AfAm Est GFR (CKD-EPI)NonAf POC Glucometer Random Glucose Calcium Total Bilirubin AST ALT Alkaline Phosphatase Total Protein Albumin Syphilis Serology COVID-19 ([facility]) HIV Ag/Ab Combo Qual lab noted - Treatment Hospital Course: Detox Protocol Followed, Detoxed Safely, Responded well, Discharged Condition Good, Rehab Referral Accepted Patient has Accepted a Rehab Referral to: [facility] service - Medication Discharge Medications: Ambulatory Orders NK [No Known Home Medication] 03/04/19 - Diagnosis (1) Substance induced mood disorder Current Visit: Yes Status: Suspected (2) Leukocytopenia, unspecified Current Visit: Yes Status: Chronic Qualifiers: Leukopenia type: unspecified Qualified Code(s): D72.819 - Decreased white blood cell count, unspecified (3) Opiate withdrawal Current Visit: Yes Status: Acute - AMA Did Patient Leave Against Medical Advice: No COWS (PN) - Opiate Withdrawal Resting Pulse: 0= [place] 80 or Below Sweatin= No chills or Flushing Restless Observation: 0= Sits Still Pupil Size: 0= Normal to Room Light Bone or Joint Aches: 1= Mild Discomfort Runny Nose/ Eye Tearin= None GI Upset > 30mins: 0= None Tremor Observation of Outstretched Hands: 1= Tremor [place], Not Seen Yawning Observation: 0= None Anxiety or Irritability: 1=Feels Anxious/Irritable Goose Flesh Skin: 0=Smooth Skin COWS Score: 3
[2020-02-07 11:50] LABS: HEMATOCRIT 40.3 % (35.4-49); HEMOGLOBIN 13.3 GM/dL (11.7-16.9); MCH 28.8 pg (25.7-33.7); MEAN CELL VOLUME 87.1 fl (80-96); MEAN PLT VOLUME 8.8 fl (7.5-11.1); PLATELET COUNT 199 K/MM3 (134-434); RBC 4.63 M/mm3 (4.00-5.60); RDW 13.9 % (11.9-15.9); WHITE BLOOD COUNT 3.2 K/mm3 (4.0-10.0)
[2020-02-08] MEDS ORDERED: METHADONE HCL 5 MG TABLET (FOR DETOX USE ONLY) PO ONE (06:00)
== END 2020-02-07 09:28 | disposition home or self-care (01) | DRG 773 ==
LOC: YASAS 11:12 → Y3N 12:52
PROVIDERS: ADMIT Allergy & Immunology; ATTEND Allergy & Immunology
PROC: HZ2ZZZZ Detoxification Services for Substance Abuse Treatment (ICD-10-PCS; principal; 2020-02-03)
DX: F11.23 Opioid dependence with withdrawal (principal); F13.20 Sedative, hypnotic or anxiolytic dependence, uncomplicated; F19.24 Other psychoactive substance dependence with psychoactive substance-induced mood disorder; D72.819 Decreased white blood cell count, unspecified; R73.03 Prediabetes; Z87.828 Personal history of other (healed) physical injury and trauma; Z56.0 Unemployment, unspecified
CPT/HCPCS: 36415; 80053; 82962; 85027; 86780; 87389; U0003

== ENCOUNTER 2020-04-28 14:56 | Inpatient (IN) | payer OTHER ==
--- OUTSIDE RECORDS SUMMARY | 2020-04-28 15:10 | XMS ---
:1965 Author Organization [facility] Support Name Relationship Address Phone UE Unavailable Unavailable Unavailable BRITTNEY [place] [address] BRITTNEY WINSLOW Mother [place] [address] Re-disclosure Warning The records that you are about to access may contain information from federally- assisted alcohol or drug abuse programs. If such information is present, then the following federally mandated warning applies: This information has been disclosed to you from records protected by federal confidentiality rules (42 CFR part 2). The federal rules prohibit you from making any further disclosure of this information unless further disclosure is expressly permitted by the written consent of the person to whom it pertains or as otherwise permitted by 42 CFR part 2. A general authorization for the release of medical or other information is NOT sufficient for this purpose. The Federal rules restrict any use of the information to criminally investigate or prosecute any alcohol or drug abuse patient.The records that you are about to access may contain highly sensitive health information, the redisclosure of which is protected by Article 27-F of the [facility] Public Health law. If you continue you may haveaccess to information: Regarding HIV / AIDS; Provided by facilities licensed or operated by the [facility] Office of Mental Health; or Provided by the [facility] Office for People With Developmental Disabilities. If such information is present, then the following [facility] mandated warning applies: This information has been disclosed to you from confidential records which are protected by state law. State law prohibits you from making any further disclosure of this information without the specific written consent of the person to whom it pertains, or as otherwise permitted by law. Any unauthorized further disclosure in violation of state law may result in a fine or snf sentence or both. A general authorization for the release of medical or other information is NOT sufficient authorization for further disclosure. Insurance Providers Payer name Policy type Policy ID Covered Covered democrat's Policy P arvind / Coverage democrat ID relationship to T[employer]ar Inf ormation type tovar HEALTH [id number] SP [id number] FIRST [employer] [id number] SP [id number] FIRST Results ID Date Data Source [id number] 02/03/2020 01:00:00 PM EDT [facility] Name Value Range Interpretation Description Data Sup porting Code Source(s) Document(s ) SARS [facility] coronavirus 2 RNA This lab was ordered by [facility] and reported by [facility]. Procedure
[2020-04-28 17:19] VITALS: BMI 23.5
--- NOTE | 2020-04-28 17:20 | BHS.RME ---
Substance Use & Tx History - Substance Use History Alcohol Substance amount: 4 nips, 7 -16 oz Frequency of use: Daily Substance route: Oral Date of Last Use: 04/28/20 Heroin Substance amount: 7-8 bags Frequency of use: Daily Substance route: Inhalation (ex: sniffing or snorting) Date of Last Use: 04/28/20 - Last Treatment Date of last treatment: 02/03/2020 Where was last treatment: Detox Physical/Psych/Mental Status - Behavior General Behavior: Increased activity (restlessness, agitation) Eye Contact: Normal Other Behaviors: Mannerisms - Thinking Thought Processes: Logical Thought content: Future oriented - Physical Health Problems Is patient presently having any pain?: No Does patient presently have any injuries (include location): No Does patient currently have a fever: No COWS - Scale Resting Pulse: 1= [place] 81-100 Sweatin= Chills/Flushing Restless Observation: 1= Difficult to Sit Still Pupil Size: 0= Normal to Room Light Bone or Joint Aches: 2= Severe Diffuse Aches Runny Nose/ Eye Tearin= Nasal Congestion GI Upset > 30mins: 2= Nausea/Diarrhea Tremor Observation: 2= Slight Tremor Visible Yawning Observation: 1= 1-2x During Session Anxiety or Irritability: 1=Feels Anxious/Irritable Goose Flesh Skin: 3=Piloerection COWS Score: 15 CIWA Nausea/Vomitin Muscle Tremors: 2 Anxiety: 2 Agitation: 2 Paroxysmal Sweats: 1-Minimal Palms Moist Orientation: 0-Oriented Tacttile Disturbances: 1-Very Mild Itch/Numbness Auditory Disturbances: 0-None Visual Disturbances: 0-None Headache: 2-Mild CIWA-Ar Total Score: 12
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
[2020-04-28] MEDS ORDERED: cloNIDine HCL 0.1 MG TABLET PO PRN (17:37)
[2020-04-28] MEDS ORDERED: MENTHOL/PHENOL 1 EACH UD MM PRN (17:37)
[2020-04-28] MEDS ORDERED: ACETAMINOPHEN 325 MG TABLET (FP) PO PRN ×2 (17:37)
[2020-04-28] MEDS ORDERED: MAGNESIUM HYDROX 2400MG/30ML ORAL SUSPENSION 30 ML CUP PO PRN (17:37)
[2020-04-28] MEDS ORDERED: chlordiazePOXIDE HCL 25 MG CAPSULE PO PRN (17:37)
[2020-04-28] MEDS ORDERED: BISMUTH SUBSALICYLATE 524 MG/30 ML UD PO PRN (17:37)
[2020-04-28] MEDS ORDERED: MAGNESIUM CITRATE 300 ML BOTTLE PO PRN (17:37)
[2020-04-28] MEDS ORDERED: NALOXONE HCL 0.4 MG/ML VIAL IM PRN (17:37)
[2020-04-28] MEDS ORDERED: METHOCARBAMOL 500 MG TABLET PO PRN (17:37)
[2020-04-28] MEDS ORDERED: IBUPROFEN 400 MG TABLET (FP) PO PRN (17:37)
[2020-04-28] MEDS ORDERED: MAG HYDROX/AL HYDROX/SIMETH 30 ML UNIT-DOSE CUP PO PRN (17:37)
--- OUTSIDE RECORDS SUMMARY | 2020-04-28 19:31 | XMS ---
:1965 Author Organization [facility] Support Name Relationship Address Phone UE Unavailable Unavailable Unavailable BRITTNEY [place] [address] BRITTNEY WINSLOW [place] [address] Re-disclosure Warning The records that you are [...] is protected by Article 27-F of the [facility] Public Health law. If you continue you may haveaccess to information: Regarding HIV / AIDS; Provided by facilities licensed or operated by the [facility] Office of Mental Health; or Provided by the [facility] Office for People With Developmental Disabilities. If such information is present, then the following [facility] mandated warning applies: This information has been [...] law may result in a fine or skilled nursing sentence or both. A general authorization for the release of medical or other information is NOT sufficient authorization for further disclosure. Insurance Providers Payer name Policy type Policy ID Covered Covered constitution party's Policy P arvind / Coverage constitution party ID relationship to Tovar Inf ormation type tovar HEALTH [id number] SP [id number] [employer] [id number] SP [id number] FIRST Results ID Date Data Source [id number] 02/03/2020 01:00:00 PM EDT [facility] Name Value Range Interpretation Description Data Sup porting Code Source(s) Document(s ) SARS [facility] coronavirus 2 RNA This lab was ordered by [facility] and reported by [facility]. Procedure
[2020-04-28] MEDS ORDERED: METHADONE HCL 10 MG TABLET (FOR DETOX USE ONLY) PO ONE (19:45)
[2020-04-28] MEDS: THIAMINE HCL 100 MG TABLET (FP) PO SCH (22:27)
[2020-04-28] MEDS: chlordiazePOXIDE HCL 25 MG CAPSULE PO SCH (22:27)
[2020-04-28] MEDS: MELATONIN 5 MG TABLETS PO SCH (22:27)
[2020-04-29] MEDS: chlordiazePOXIDE HCL 25 MG CAPSULE PO SCH ×4 (06:31→22:48)
[2020-04-29] MEDS ORDERED: METHADONE (DETOX) 20 MG, METHADONE (DETOX) 5 MG PO ONE (10:00)
[2020-04-29] MEDS: PRENATAL VITAMINS W/ FOLIC ACID TABLET (FP) PO SCH (10:29)
[2020-04-29 10:51] LABS: HEMATOCRIT 37.6 % (35.4-49); HEMOGLOBIN 12.4 GM/dL (11.7-16.9); MCH 29.4 pg (25.7-33.7); MCHC 33.1 g/dl (32.0-35.9); MEAN CELL VOLUME 88.8 fl (80-96); MEAN PLT VOLUME 8.2 fl (7.5-11.1); PLATELET COUNT 196 K/MM3 (134-434); RBC 4.24 M/mm3 (4.00-5.60); RDW 13.4 % (11.9-15.9)
[2020-04-29 11:01] LABS: ALBUMIN 3.3 g/dl (3.4-5.0); BILIRUBIN,TOTAL 0.5 mg/dL (0.2-1); BLOOD UREA NITROGEN 11.7 mg/dL (7-18); CALCIUM 8.5 mg/dL (8.5-10.1); CREATININE 0.9 mg/dL (0.55-1.3); POTASSIUM 4.1 mmol/L (3.5-5.1); TOT PROT 6.7 g/dl (6.4-8.2)
--- NOTE | 2020-04-29 13:40 | PN ---
[facility] CIWA - CIWA Score Nausea/Vomitin-Mild Nausea/No Vomiting Muscle Tremors: 3 Anxiety: 4-Mod. Anxious/Guarded Agitation: 1-Slight > Activity Paroxysmal Sweats: No Perspiration Orientation: 0-Oriented Tacttile Disturbances: 0-None Auditory Disturbances: 0-None Visual Disturbances: 0-None Headache: 2-Mild CIWA-Ar Total Score: 11 S COWS - Scale Resting Pulse: 0= [place] 80 or Below Sweatin= No chills or Flushing Restless Observation: 0= Sits Still Pupil Size: 1= Pupils >than Normal Bone or Joint Aches: 1= Mild Discomfort Runny Nose/ Eye Tearin= None GI Upset > 30mins: 2= Nausea/Diarrhea Tremor Observation of Outstretched Hands: 2= Slight Tremor Visible Yawning Observation: 0= None Anxiety or Irritability: 2=Irritable/Anxious Goose Flesh Skin: 3=Piloerection COWS Score: 11 [facility] Progress Note (SOAP) Subjective: 54 years old male was admitted on 04/28/20 for alcohol and opiate withdrawal sx management treating with librium and methadone detox regiments mbi 23.5 ensure 120 ml po tid with meals ate breakfast and lunch in room ambulating on hallway encourage to consider aftercare at medication assisted treatment program Objective: 04/29/20 13:41 Vital Signs - 24 hr 04/28/20 04/28/20 04/29/20 17:16 20:15 06:21 Temperature 97.7 F 97.3 F L 97.1 F L Pulse Rate 83 72 61 Respiratory 18 18 18 Rate Blood Pressure 119/73 134/77 137/81 O2 Sat by Pulse 100 99 Oximetry (%) 04/29/20 08:54 Temperature 98.2 F Pulse Rate 67 Respiratory 18 Rate Blood Pressure 115/75 O2 Sat by Pulse Oximetry (%) Laboratory Tests 04/29/20 04/29/20 04/29/20 07:50 07:50 07:50 WBC 4.0 RBC 4.24 Hgb 12.4 Hct 37.6 MCV 88.8 MCH 29.4 MCHC 33.1 RDW 13.4 Plt Count 196 MPV 8.2 Sodium 142 Potassium 4.1 Chloride 104 Carbon Dioxide 33 H Anion Gap 5 L BUN 11.7 Creatinine 0.9 Est GFR (CKD-EPI)AfAm 111.05 Est GFR (CKD-EPI)NonAf 95.81 Random Glucose 84 Calcium 8.5 Total Bilirubin 0.5 AST 16 ALT 16 Alkaline Phosphatase 94 Total Protein 6.7 Albumin 3.3 L Syphilis Serology Non-reactive 04/29/20 13:42 covid pending Assessment: 04/29/20 13:42 alcohol and opiate withdrawal Plan: librium and methadone regiments
[2020-04-29] MEDS ORDERED: chlordiazePOXIDE HCL 25 MG CAPSULE ONE ×2 (17:04→20:50)
--- NOTE | 2020-04-29 21:41 | EKG ---
Test Reason : Blood Pressure : / mmHG Vent. Rate : 069 BPM Atrial Rate : 069 BPM P-R Int : 186 ms QRS Dur : 092 ms QT Int : 432 ms P-R-T Axes : 058 026 008 degrees QTc Int : 462 ms NORMAL SINUS RHYTHM NORMAL ECG WHEN COMPARED WITH ECG OF 04-MAR-2019 18:24, NO SIGNIFICANT CHANGE WAS FOUND Confirmed by JUSTIN DYER MD ([id number]) on 04/29/2020 9:41:13 PM Referred By: Confirmed By:JUSTIN DYER MD
[2020-04-29] MEDS: THIAMINE HCL 100 MG TABLET (FP) PO SCH (22:48)
[2020-04-29] MEDS: MELATONIN 5 MG TABLETS PO SCH (22:48)
[2020-04-30] MEDS ORDERED: chlordiazePOXIDE HCL 25 MG CAPSULE ONE ×4 (04:40→21:15)
[2020-04-30] MEDS: chlordiazePOXIDE HCL 25 MG CAPSULE PO SCH ×4 (06:16→23:03)
[2020-04-30] MEDS ORDERED: METHADONE HCL 10 MG TABLET (FOR DETOX USE ONLY) ONE (08:56)
--- NOTE | 2020-04-30 09:38 | PN ---
S CIWA - CIWA Score Nausea/Vomitin-No Nausea/No Vomiting Muscle Tremors: 2 Anxiety: 2 Agitation: 0-Normal Activity Paroxysmal Sweats: No Perspiration Orientation: 0-Oriented Tacttile Disturbances: 0-None Auditory Disturbances: 0-None Visual Disturbances: 2-Mild Sensitivity Headache: 2-Mild CIWA-Ar Total Score: 8 [facility] COWS - Scale Resting Pulse: 0= [place] 80 or Below Sweatin= Chills/Flushing Restless Observation: 0= Sits Still Pupil Size: 1= Pupils >than Normal Bone or Joint Aches: 1= Mild Discomfort Runny Nose/ Eye Tearin= None GI Upset > 30mins: 1= Stomach Cramp Tremor Observation of Outstretched Hands: 2= Slight Tremor Visible Yawning Observation: 0= None Anxiety or Irritability: 2=Irritable/Anxious Goose Flesh Skin: 0=Smooth Skin COWS Score: 8 S Progress Note (SOAP) Subjective: 54 years old male was admitted on 04/28/20 for alcohol and opiate withdrawal sx management treating with librium and methadone detox regiments feels better today tolerating food and ensure well discussing narcan encouraging to diamond picker narcan from pharmacy upon discharged from detox Objective: 04/30/20 09:39 Vital Signs - 24 hr 04/29/20 04/29/20 04/29/20 12:48 17:02 21:05 Temperature 98.0 F 97.1 F L 97.5 F L Pulse Rate 71 70 62 Respiratory 18 18 16 Rate Blood Pressure 116/66 128/81 131/88 O2 Sat by Pulse 99 99 Oximetry (%) 04/30/20 06:34 Temperature 96.8 F L Pulse Rate 66 Respiratory 18 Rate Blood Pressure 140/95 O2 Sat by Pulse 99 Oximetry (%) Laboratory Tests 04/28/20 04/29/20 04/29/20 20:21 07:50 07:50 WBC 4.0 RBC 4.24 Hgb 12.4 Hct 37.6 MCV 88.8 MCH 29.4 MCHC 33.1 RDW 13.4 Plt Count 196 MPV 8.2 Sodium Potassium Chloride Carbon Dioxide Anion Gap BUN Creatinine Est GFR (CKD-EPI)AfAm Est GFR (CKD-EPI)NonAf Random Glucose Calcium Total Bilirubin AST ALT Alkaline Phosphatase Total Protein Albumin Syphilis Serology Non-reactive COVID-19 ([facility]) Not detected 04/29/20 07:50 WBC RBC Hgb Hct MCV MCH MCHC RDW Plt Count MPV Sodium 142 Potassium 4.1 Chloride 104 Carbon Dioxide 33 H Anion Gap 5 L BUN 11.7 Creatinine 0.9 Est GFR (CKD-EPI)AfAm 111.05 Est GFR (CKD-EPI)NonAf 95.81 Random Glucose 84 Calcium 8.5 Total Bilirubin 0.5 AST 16 ALT 16 Alkaline Phosphatase 94 Total Protein 6.7 Albumin 3.3 L Syphilis Serology COVID-19 ([facility]) lab noted Assessment: 04/30/20 09:39 alcohol and opiate withdrawal Plan: librium and methadone regiments
[2020-04-30] MEDS ORDERED: METHADONE HCL 10 MG TABLET (FOR DETOX USE ONLY) PO ONE (10:00)
[2020-04-30] MEDS: PRENATAL VITAMINS W/ FOLIC ACID TABLET (FP) PO SCH (10:21)
[2020-04-30] MEDS: MELATONIN 5 MG TABLETS PO SCH (23:03)
[2020-04-30] MEDS: THIAMINE HCL 100 MG TABLET (FP) PO SCH (23:03)
[2020-05-01] MEDS ORDERED: chlordiazePOXIDE HCL 10 MG CAPSULE PO PRN
[2020-05-01] MEDS ORDERED: chlordiazePOXIDE HCL 10 MG CAPSULE PO ONE (06:47)
[2020-05-01] MEDS: chlordiazePOXIDE HCL 10 MG CAPSULE PO SCH ×4 (07:39→22:30)
[2020-05-01] MEDS ORDERED: METHADONE HCL 10 MG TABLET PO ONE (09:26)
[2020-05-01] MEDS ORDERED: LOPERAMIDE HCL 2 MG CAPSULE PO ONE ×2 (09:27→12:29)
[2020-05-01] MEDS ORDERED: ONDANSETRON *ODT* 4 MG TABLET SL ONE ×2 (09:28→12:31)
[2020-05-01] MEDS ORDERED: DICYCLOMINE HCL 10 MG CAPSULE PO ONE ×2 (09:28→12:30)
--- NOTE | 2020-05-01 09:33 | PN ---
[facility] CIWA - CIWA Score Nausea/Vomitin-Mild Nausea/No Vomiting Muscle Tremors: 1-None Visible, but [place] Anxiety: 1-Mildly Anxious Agitation: 1-Slight > Activity Paroxysmal Sweats: No Perspiration Orientation: 0-Oriented Tacttile Disturbances: 1-Very Mild Itch/Numbness Auditory Disturbances: 0-None Visual Disturbances: 1-Very Mild Sensitivity Headache: 0-None Present CIWA-Ar Total Score: 6 S COWS - Scale Resting Pulse: 0= [place] 80 or Below Sweatin= No chills or Flushing Restless Observation: 0= Sits Still Pupil Size: 1= Pupils >than Normal Bone or Joint Aches: 1= Mild Discomfort Runny Nose/ Eye Tearin= None GI Upset > 30mins: 1= Stomach Cramp Tremor Observation of Outstretched Hands: 1= Tremor [place], Not Seen Yawning Observation: 1= 1-2x During Session Anxiety or Irritability: 1=Feels Anxious/Irritable Goose Flesh Skin: 0=Smooth Skin COWS Score: 6 [facility] Progress Note (SOAP) Subjective: 54 years old male was admitted on 04/28/20 for alcohol and opiate withdrawal sx management treating with librium and methadone detox regiment loose stool x 1 after breakfast imodium 4 mg po x 1 stomach cramping bentyl 20 mg po x 1 nausea after ensure zofran 4 mg sl x 1 Objective: 05/01/20 09:38 Vital Signs - 24 hr 04/30/20 04/30/20 04/30/20 12:47 16:46 20:52 Temperature 98.0 F 97.7 F 98.2 F Pulse Rate 70 62 60 Respiratory 18 16 16 Rate Blood Pressure 117/70 125/81 115/67 O2 Sat by Pulse 98 98 99 Oximetry (%) 05/01/20 06:26 Temperature 97.7 F Pulse Rate 61 Respiratory 18 Rate Blood Pressure 124/80 O2 Sat by Pulse 100 Oximetry (%) Laboratory Tests 04/28/20 04/29/20 04/29/20 20:21 07:50 07:50 WBC 4.0 RBC 4.24 Hgb 12.4 Hct 37.6 MCV 88.8 MCH 29.4 MCHC 33.1 RDW 13.4 Plt Count 196 MPV 8.2 Sodium Potassium Chloride Carbon Dioxide Anion Gap BUN Creatinine Est GFR (CKD-EPI)AfAm Est GFR (CKD-EPI)NonAf Random Glucose Calcium Total Bilirubin AST ALT Alkaline Phosphatase Total Protein Albumin Syphilis Serology Non-reactive COVID-19 ([facility]IA) Not detected 04/29/20 07:50 WBC RBC Hgb Hct MCV MCH MCHC RDW Plt Count MPV Sodium 142 Potassium 4.1 Chloride 104 Carbon Dioxide 33 H Anion Gap 5 L BUN 11.7 Creatinine 0.9 Est GFR (CKD-EPI)AfAm 111.05 Est GFR (CKD-EPI)NonAf 95.81 Random Glucose 84 Calcium 8.5 Total Bilirubin 0.5 AST 16 ALT 16 Alkaline Phosphatase 94 Total Protein 6.7 Albumin 3.3 L Syphilis Serology COVID-19 ([facility]) lab noted Assessment: 05/01/20 09:38 alcohol and opiate withdrawal Plan: librium and methadone regiments
[2020-05-01] MEDS ORDERED: METHADONE (DETOX) 10 MG, METHADONE (DETOX) 5 MG PO ONE ×2 (09:37→10:00)
[2020-05-01] MEDS ORDERED: METHADONE HCL 5 MG TABLET (FOR DETOX USE ONLY) ONE (09:42)
[2020-05-01] MEDS ORDERED: METHADONE HCL 10 MG TABLET (FOR DETOX USE ONLY) ONE (09:42)
[2020-05-01] MEDS: PRENATAL VITAMINS W/ FOLIC ACID TABLET (FP) PO SCH (10:04)
[2020-05-01] MEDS: THIAMINE HCL 100 MG TABLET (FP) PO SCH (22:30)
[2020-05-01] MEDS: MELATONIN 5 MG TABLETS PO SCH (22:30)
[2020-05-02] MEDS ORDERED: chlordiazePOXIDE HCL 10 MG CAPSULE PO SCH (05:00)
[2020-05-02 06:32] VITALS: BP 127/76; PULSE 60; TEMP 97.1
--- NOTE | 2020-05-02 07:54 | PN ---
[facility] CIWA - CIWA Score Nausea/Vomitin-No Nausea/No Vomiting Muscle Tremors: None Anxiety: 1-Mildly Anxious Agitation: 0-Normal Activity Paroxysmal Sweats: No Perspiration Orientation: 0-Oriented Tacttile Disturbances: 0-None Auditory Disturbances: 0-None Visual Disturbances: 0-None Headache: 0-None Present CIWA-Ar Total Score: 1 [facility] COWS - Scale Resting Pulse: 0= [place] 80 or Below Sweatin= No chills or Flushing Restless Observation: 0= Sits Still Pupil Size: 0= Normal to Room Light Bone or Joint Aches: 0= None Runny Nose/ Eye Tearin= None GI Upset > 30mins: 0= None Tremor Observation of Outstretched Hands: 0= None Yawning Observation: 0= None Anxiety or Irritability: 1=Feels Anxious/Irritable Goose Flesh Skin: 0=Smooth Skin COWS Score: 1 [facility] Progress Note (SOAP) Subjective: alert,no complaint Objective: 05/02/20 12:15 Vital Signs Temperature 97.1 F L 05/02/20 06:32 Pulse Rate 60 05/02/20 06:32 Respiratory Rate 18 05/02/20 06:32 Blood Pressure 127/76 05/02/20 06:32 O2 Sat by Pulse Oximetry (%) 99 05/02/20 06:32 Assessment: 05/02/20 12:16 no withdrawal symptom Plan: stable for discharge today,follow up with after care program as arrangement
--- NOTE | 2020-05-02 07:54 | DS ---
[facility] Detox Discharge Summary Admission Date: 04/28/20 Discharge Date: 05/02/20 - History Present History: Alcohol Dependence, Cocaine Dependence, Opioid Dependence Additional Comments: alert,oriented x 3 ambulation on the unit lung clear on auscultation bilaterally abdomen soft,no distension,no pain no edema of the legs stable for discharge today no withdrawal symptom total time spending on discharge 35 minutes follow up with out patient program [facility] outpatient facility left the unit in stable condition - Physical Exam Results Vital Signs: Vital Signs Temperature 97.1 F L 05/02/20 06:32 Pulse Rate 60 05/02/20 06:32 Respiratory Rate 18 05/02/20 06:32 Blood Pressure 127/76 05/02/20 06:32 O2 Sat by Pulse Oximetry (%) 99 05/02/20 06:32 Pertinent Admission Physical Exam Findings: withdrawal signs and symptom Laboratory Last Values WBC 4.0 K/mm3 (4.0-10.0) 04/29/20 07:50 RBC 4.24 M/mm3 (4.00-5.60) 04/29/20 07:50 Hgb 12.4 GM/dL (11.7-16.9) 04/29/20 07:50 Hct 37.6 % (35.4-49) 04/29/20 07:50 MCV 88.8 fl (80-96) 04/29/20 07:50 MCH 29.4 pg (25.7-33.7) 04/29/20 07:50 MCHC 33.1 g/dl (32.0-35.9) 04/29/20 07:50 RDW 13.4 % (11.9-15.9) 04/29/20 07:50 Plt Count 196 K/MM3 (134-434) 04/29/20 07:50 MPV 8.2 fl (7.5-11.1) 04/29/20 07:50 Sodium 142 mmol/L (136-145) 04/29/20 07:50 Potassium 4.1 mmol/L (3.5-5.1) 04/29/20 07:50 Chloride 104 mmol/L (98-107) 04/29/20 07:50 Carbon Dioxide 33 mmol/L (21-32) H 04/29/20 07:50 Anion Gap 5 MMOL/L (8-16) L 04/29/20 07:50 BUN 11.7 mg/dL (7-18) 04/29/20 07:50 Creatinine 0.9 mg/dL (0.55-1.3) 04/29/20 07:50 Est GFR (CKD-EPI)AfAm 111.05 04/29/20 07:50 Est GFR (CKD-EPI)NonAf 95.81 04/29/20 07:50 Random Glucose 84 mg/dL (74-106) 04/29/20 07:50 Calcium 8.5 mg/dL (8.5-10.1) 04/29/20 07:50 Total Bilirubin 0.5 mg/dL (0.2-1) 04/29/20 07:50 AST 16 U/L (15-37) 04/29/20 07:50 ALT 16 U/L (13-61) 04/29/20 07:50 Alkaline Phosphatase 94 U/L (45-117) 04/29/20 07:50 Total Protein 6.7 g/dl (6.4-8.2) 04/29/20 07:50 Albumin 3.3 g/dl (3.4-5.0) L 04/29/20 07:50 Syphilis Serology Non-reactive (NONREACTIVE) 04/29/20 07:50 COVID-19 (HILARIA) Not detected (Not Detected) 04/28/20 20:21 Vital Signs Temperature 97.1 F L 05/02/20 06:32 Pulse Rate 60 05/02/20 06:32 Respiratory Rate 18 05/02/20 06:32 Blood Pressure 127/76 05/02/20 06:32 O2 Sat by Pulse Oximetry (%) 99 05/02/20 06:32 - Treatment Hospital Course: Detox Protocol Followed, Detoxed Safely, Responded well, Discharged Condition Good Patient has Accepted a Rehab Referral to: declined - Medication Discharge Medications: Ambulatory Orders Naloxone HCl [Narcan] 4 mg NS ASDIR PRN #1 spray 04/30/20 - Diagnosis (1) Opioid dependence with withdrawal Status: Acute (2) Alcohol dependence with withdrawal, uncomplicated Status: Acute (3) Cocaine dependence, uncomplicated Status: Acute - AMA Did Patient Leave Against Medical Advice: No
[2020-05-02] MEDS ORDERED: METHADONE HCL 10 MG TABLET (FOR DETOX USE ONLY) PO ONE (10:00)
[2020-05-03] MEDS ORDERED: chlordiazePOXIDE HCL 10 MG CAPSULE PO ONE (05:00)
[2020-05-03] MEDS ORDERED: METHADONE HCL 5 MG TABLET (FOR DETOX USE ONLY) PO ONE (06:00)
== END 2020-05-02 08:58 | disposition home or self-care (01) | DRG 773 ==
LOC: YASAS 14:56 → Y3N 19:27
PROVIDERS: ADMIT Allergy & Immunology; ATTEND Allergy & Immunology
PROC: HZ2ZZZZ Detoxification Services for Substance Abuse Treatment (ICD-10-PCS; principal; 2020-04-28)
DX: F10.230 Alcohol dependence with withdrawal, uncomplicated (principal); F11.23 Opioid dependence with withdrawal; F14.20 Cocaine dependence, uncomplicated; R73.03 Prediabetes
CPT/HCPCS: 36415; 80053; 85027; 86780; 93005; 93010; Q0162; U0003

== ENCOUNTER 2020-06-19 09:52 | Inpatient (IN) | payer OTHER ==
[2020-06-19 10:31] VITALS: BMI 23.5
[2020-06-19] MEDS ORDERED: cloNIDine HCL 0.1 MG TABLET PO PRN (10:45)
[2020-06-19] MEDS ORDERED: BISMUTH SUBSALICYLATE 262 MG/15 ML BTL PO PRN (10:45)
[2020-06-19] MEDS ORDERED: MENTHOL/PHENOL 1 EACH UD MM PRN (10:45)
[2020-06-19] MEDS ORDERED: MAGNESIUM HYDROX 2400MG/30ML ORAL SUSPENSION 30 ML CUP PO PRN (10:45)
[2020-06-19] MEDS ORDERED: METHOCARBAMOL 500 MG TABLET PO PRN (10:45)
[2020-06-19] MEDS ORDERED: METHADONE HCL 10 MG TABLET (FOR DETOX USE ONLY) PO ONE (10:45)
[2020-06-19] MEDS ORDERED: ONDANSETRON *ODT* 4 MG TABLET SL PRN (10:45)
[2020-06-19] MEDS ORDERED: MAG HYDROX/AL HYDROX/SIMETH 30 ML UNIT-DOSE CUP PO PRN (10:45)
[2020-06-19] MEDS ORDERED: chlordiazePOXIDE HCL 25 MG CAPSULE PO PRN (10:45)
[2020-06-19] MEDS ORDERED: MAGNESIUM CITRATE 300 ML BOTTLE PO PRN (10:45)
[2020-06-19] MEDS ORDERED: ACETAMINOPHEN 325 MG TABLET (FP) PO PRN ×2 (10:45)
[2020-06-19] MEDS ORDERED: IBUPROFEN 400 MG TABLET (FP) PO PRN (10:45)
[2020-06-19] MEDS: chlordiazePOXIDE HCL 25 MG CAPSULE PO SCH ×3 (11:47→22:02)
[2020-06-19] MEDS: PRENATAL VITAMINS W/ FOLIC ACID TABLET (FP) PO SCH (11:50)
[2020-06-19 14:14] LABS: HEMATOCRIT 40.3 % (35.4-49); HEMOGLOBIN 13.5 GM/dL (11.7-16.9); MCH 29.4 pg (25.7-33.7); MCHC 33.4 g/dl (32.0-35.9); MEAN CELL VOLUME 87.9 fl (80-96); MEAN PLT VOLUME 7.9 fl (7.5-11.1); PLATELET COUNT 276 K/MM3 (134-434); RBC 4.58 M/mm3 (4.00-5.60); RDW 13.7 % (11.9-15.9); WHITE BLOOD COUNT 2.1 K/mm3 (4.0-10.0)
[2020-06-19] MEDS: hydrOXYzine PAMOATE 25 MG CAPSULE (FP) PO SCH ×3 (14:17→22:02)
[2020-06-19 14:19] LABS: POTASSIUM 4.6 mmol/L (3.5-5.1)
[2020-06-19 14:21] LABS: CALCIUM 9.1 mg/dL (8.5-10.1)
[2020-06-19 14:22] LABS: BLOOD UREA NITROGEN 9.2 mg/dL (7-18)
[2020-06-19 14:25] LABS: CREATININE 0.9 mg/dL (0.55-1.3)
[2020-06-19 14:26] LABS: BILIRUBIN,TOTAL 0.7 mg/dL (0.2-1); TOT PROT 8.1 g/dl (6.4-8.2)
[2020-06-19] MEDS: MELATONIN 5 MG TABLETS PO SCH (22:02)
[2020-06-19] MEDS: THIAMINE HCL 100 MG TABLET (FP) PO SCH (22:02)
[2020-06-20] MEDS: chlordiazePOXIDE HCL 25 MG CAPSULE PO SCH ×4 (07:02→23:09)
[2020-06-20] MEDS: hydrOXYzine PAMOATE 25 MG CAPSULE (FP) PO SCH ×2 (07:02→10:19)
[2020-06-20] MEDS ORDERED: METHADONE HCL 5 MG TABLET (FOR DETOX USE ONLY) ONE (08:49)
[2020-06-20] MEDS ORDERED: METHADONE HCL 10 MG TABLET (FOR DETOX USE ONLY) ONE (08:50)
[2020-06-20] MEDS ORDERED: METHADONE (DETOX) 20 MG, METHADONE (DETOX) 5 MG PO ONE (10:00)
[2020-06-20] MEDS: PRENATAL VITAMINS W/ FOLIC ACID TABLET (FP) PO SCH (10:16)
[2020-06-20] MEDS: MELATONIN 5 MG TABLETS PO SCH (23:08)
[2020-06-20] MEDS: THIAMINE HCL 100 MG TABLET (FP) PO SCH (23:09)
[2020-06-21] MEDS: chlordiazePOXIDE HCL 25 MG CAPSULE PO SCH ×4 (06:18→22:46)
[2020-06-21 09:39] LABS: BASO % 1.7 % (0-2.0); EOS % 9.5 % (0-4.5); HEMATOCRIT 41.9 % (35.4-49); HEMOGLOBIN 13.7 GM/dL (11.7-16.9); MCH 28.9 pg (25.7-33.7); MCHC 32.6 g/dl (32.0-35.9); MEAN CELL VOLUME 88.6 fl (80-96); MEAN PLT VOLUME 8.4 fl (7.5-11.1); MONO % 10.6 % (3.8-10.2); NEUT % 37.2 % (42.8-82.8); PLATELET COUNT 227 K/MM3 (134-434); RBC 4.73 M/mm3 (4.00-5.60); RDW 13.5 % (11.9-15.9); WHITE BLOOD COUNT 2.5 K/mm3 (4.0-10.0)
[2020-06-21] MEDS ORDERED: METHADONE HCL 10 MG TABLET (FOR DETOX USE ONLY) PO ONE (10:00)
[2020-06-21] MEDS: PRENATAL VITAMINS W/ FOLIC ACID TABLET (FP) PO SCH (10:21)
[2020-06-21] MEDS: THIAMINE HCL 100 MG TABLET (FP) PO SCH (22:46)
[2020-06-21] MEDS: MELATONIN 5 MG TABLETS PO SCH (22:47)
[2020-06-22] MEDS ORDERED: chlordiazePOXIDE HCL 10 MG CAPSULE PO PRN
[2020-06-22] MEDS: chlordiazePOXIDE HCL 10 MG CAPSULE PO SCH ×4 (06:25→22:07)
[2020-06-22] MEDS ORDERED: METHADONE HCL 5 MG TABLET (FOR DETOX USE ONLY) ONE (09:17)
[2020-06-22] MEDS ORDERED: METHADONE HCL 10 MG TABLET (FOR DETOX USE ONLY) ONE (09:18)
[2020-06-22] MEDS ORDERED: METHADONE (DETOX) 10 MG, METHADONE (DETOX) 5 MG PO ONE (10:00)
[2020-06-22] MEDS: PRENATAL VITAMINS W/ FOLIC ACID TABLET (FP) PO SCH (10:22)
[2020-06-22 16:09] LABS: BASO % 1.1 % (0-2.0); CALCIUM 8.8 mg/dL (8.5-10.1); EOS % 8.3 % (0-4.5); HEMATOCRIT 39.5 % (35.4-49); HEMOGLOBIN 12.8 GM/dL (11.7-16.9); LYMPH % 35.8 % (8-40); MCH 29.1 pg (25.7-33.7); MCHC 32.5 g/dl (32.0-35.9); MEAN CELL VOLUME 89.7 fl (80-96); MEAN PLT VOLUME 8.3 fl (7.5-11.1); MONO % 9.6 % (3.8-10.2); NEUT % 45.2 % (42.8-82.8); PLATELET COUNT 208 K/MM3 (134-434); POTASSIUM 3.9 mmol/L (3.5-5.1); RDW 13.2 % (11.9-15.9); WHITE BLOOD COUNT 2.6 K/mm3 (4.0-10.0)
[2020-06-22 16:10] LABS: ALBUMIN 3.4 g/dl (3.4-5.0); BLOOD UREA NITROGEN 9.2 mg/dL (7-18)
[2020-06-22 16:13] LABS: CREATININE 0.9 mg/dL (0.55-1.3)
[2020-06-22 16:14] LABS: BILIRUBIN,TOTAL 0.3 mg/dL (0.2-1)
[2020-06-22 16:15] LABS: TOT PROT 6.7 g/dl (6.4-8.2)
[2020-06-22] MEDS: MELATONIN 5 MG TABLETS PO SCH (22:07)
[2020-06-22] MEDS: THIAMINE HCL 100 MG TABLET (FP) PO SCH (22:07)
[2020-06-22] MEDS: hydrOXYzine PAMOATE 25 MG CAPSULE (FP) PO PRN (23:44)
[2020-06-23] MEDS: chlordiazePOXIDE HCL 10 MG CAPSULE PO SCH ×2 (06:42→18:00)
[2020-06-23] MEDS ORDERED: METHADONE HCL 10 MG TABLET (FOR DETOX USE ONLY) PO ONE (10:00)
[2020-06-23] MEDS: PRENATAL VITAMINS W/ FOLIC ACID TABLET (FP) PO SCH (10:31)
[2020-06-23] MEDS: hydrOXYzine PAMOATE 25 MG CAPSULE (FP) PO PRN (22:03)
[2020-06-23] MEDS: MELATONIN 5 MG TABLETS PO SCH (22:03)
[2020-06-23] MEDS: THIAMINE HCL 100 MG TABLET (FP) PO SCH (22:03)
[2020-06-23 23:07] VITALS: TEMP 97.8
[2020-06-24] MEDS ORDERED: chlordiazePOXIDE HCL 10 MG CAPSULE PO ONE (05:00)
[2020-06-24] MEDS ORDERED: METHADONE HCL 5 MG TABLET (FOR DETOX USE ONLY) PO ONE (06:00)
[2020-06-24 06:53] VITALS: BP 107/52; PULSE 63
[2020-06-24] MEDS ORDERED: METHADONE HCL 5 MG TABLET PO ONE (09:21)
== END 2020-06-24 10:15 | disposition home or self-care (01) | DRG 773 ==
LOC: YASAS 09:52 → Y6N 11:08
PROVIDERS: ADMIT Allergy & Immunology; ATTEND Allergy & Immunology
PROC: HZ2ZZZZ Detoxification Services for Substance Abuse Treatment (ICD-10-PCS; principal; 2020-06-19)
DX: F10.230 Alcohol dependence with withdrawal, uncomplicated (principal); F11.23 Opioid dependence with withdrawal; F14.10 Cocaine abuse, uncomplicated; F19.24 Other psychoactive substance dependence with psychoactive substance-induced mood disorder; D72.819 Decreased white blood cell count, unspecified
CPT/HCPCS: 36415; 80053; 85025; 85027; 86780; C9803; J0735; U0003

== ENCOUNTER 2020-08-27 12:58 | Inpatient (IN) | payer OTHER ==
[2020-08-27 15:13] VITALS: BMI 23.6
[2020-08-27] MEDS ORDERED: IBUPROFEN 400 MG TABLET (FP) PO PRN (16:02)
[2020-08-27] MEDS ORDERED: BISMUTH SUBSALICYLATE 524 MG/30 ML UD PO PRN (16:02)
[2020-08-27] MEDS ORDERED: guaiFENesin 200 MG/10 ML 10 ML UNIT-DOSE CUPS PO PRN (16:02)
[2020-08-27] MEDS ORDERED: chlordiazePOXIDE HCL 25 MG CAPSULE PO PRN (16:02)
[2020-08-27] MEDS ORDERED: MAGNESIUM CITRATE 300 ML BOTTLE PO PRN (16:02)
[2020-08-27] MEDS ORDERED: ACETAMINOPHEN 325 MG TABLET (FP) PO PRN ×2 (16:02)
[2020-08-27] MEDS ORDERED: MAG HYDROX/AL HYDROX/SIMETH 30 ML UNIT-DOSE CUP PO PRN (16:02)
[2020-08-27] MEDS ORDERED: MENTHOL/PHENOL 1 EACH UD MM PRN (16:02)
[2020-08-27] MEDS ORDERED: METHOCARBAMOL 500 MG TABLET PO PRN (16:02)
[2020-08-27] MEDS ORDERED: MAGNESIUM HYDROX 2400MG/30ML ORAL SUSPENSION 30 ML CUP PO PRN (16:02)
[2020-08-27] MEDS ORDERED: ONDANSETRON *ODT* 4 MG TABLET SL PRN (16:02)
[2020-08-27] MEDS ORDERED: NALOXONE HCL 0.4 MG/ML VIAL IM PRN (16:02)
[2020-08-27] MEDS ORDERED: cloNIDine HCL 0.1 MG TABLET PO PRN (16:02)
[2020-08-27] MEDS ORDERED: P-EPHED 60MG/TRIPROLIDI 2.5MG TABLET PO PRN (16:02)
[2020-08-27] MEDS ORDERED: METHADONE HCL 10 MG TABLET (FOR DETOX USE ONLY) PO ONE (16:02)
[2020-08-27] MEDS ORDERED: COLLOIDAL OATMEAL 1 BAR EACH TP PRN (16:08)
[2020-08-27] MEDS: chlordiazePOXIDE HCL 25 MG CAPSULE PO SCH ×2 (17:43→22:46)
[2020-08-27] MEDS: PRENATAL VITAMINS W/ FOLIC ACID TABLET (FP) PO SCH (17:44)
[2020-08-27] MEDS: hydrOXYzine PAMOATE 25 MG CAPSULE (FP) PO SCH ×2 (19:15→22:48)
[2020-08-27] MEDS: MINERAL OIL/PETROLAT/WATER TOPICAL CREAM 113 GM JAR TP SCH (22:46)
[2020-08-27] MEDS: THIAMINE HCL 100 MG TABLET (FP) PO SCH (22:48)
[2020-08-27] MEDS: MELATONIN 5 MG TABLETS PO SCH (22:48)
[2020-08-28] MEDS: chlordiazePOXIDE HCL 25 MG CAPSULE PO SCH ×4 (07:41→23:06)
[2020-08-28] MEDS: hydrOXYzine PAMOATE 25 MG CAPSULE (FP) PO SCH ×5 (07:43→23:06)
[2020-08-28] MEDS ORDERED: METHADONE HCL 10 MG TABLET (FOR DETOX USE ONLY) ONE (09:37)
[2020-08-28] MEDS ORDERED: METHADONE HCL 5 MG TABLET (FOR DETOX USE ONLY) ONE (09:37)
[2020-08-28] MEDS ORDERED: METHADONE (DETOX) 20 MG, METHADONE (DETOX) 5 MG PO ONE (10:00)
[2020-08-28] MEDS: MINERAL OIL/PETROLAT/WATER TOPICAL CREAM 113 GM JAR TP SCH ×2 (10:38→23:06)
[2020-08-28] MEDS: PRENATAL VITAMINS W/ FOLIC ACID TABLET (FP) PO SCH (10:39)
[2020-08-28 11:41] LABS: HEMATOCRIT 39.4 % (35.4-49); MCH 29.6 pg (25.7-33.7); MCHC 33.1 g/dl (32.0-35.9); MEAN CELL VOLUME 89.4 fl (80-96); MEAN PLT VOLUME 8.5 fl (7.5-11.1); PLATELET COUNT 194 K/MM3 (134-434); RDW 14.9 % (11.9-15.9); WHITE BLOOD COUNT 2.7 K/mm3 (4.0-10.0)
[2020-08-28 11:43] LABS: POTASSIUM 4.2 mmol/L (3.5-5.1)
[2020-08-28 11:55] LABS: ALBUMIN 3.6 g/dl (3.4-5.0); BLOOD UREA NITROGEN 14.1 mg/dL (7-18); CALCIUM 8.9 mg/dL (8.5-10.1)
[2020-08-28 11:59] LABS: CREATININE 0.9 mg/dL (0.55-1.3)
[2020-08-28 12:00] LABS: BILIRUBIN,TOTAL 0.7 mg/dL (0.2-1)
[2020-08-28] MEDS: THIAMINE HCL 100 MG TABLET (FP) PO SCH (23:06)
[2020-08-28] MEDS: MELATONIN 5 MG TABLETS PO SCH (23:06)
[2020-08-29] MEDS: chlordiazePOXIDE HCL 25 MG CAPSULE PO SCH ×4 (06:24→23:32)
[2020-08-29] MEDS: hydrOXYzine PAMOATE 25 MG CAPSULE (FP) PO SCH ×5 (06:29→23:25)
[2020-08-29] MEDS ORDERED: METHADONE HCL 10 MG TABLET (FOR DETOX USE ONLY) PO ONE (10:00)
[2020-08-29] MEDS: PRENATAL VITAMINS W/ FOLIC ACID TABLET (FP) PO SCH (10:15)
[2020-08-29] MEDS: MINERAL OIL/PETROLAT/WATER TOPICAL CREAM 113 GM JAR TP SCH ×2 (10:18→23:24)
[2020-08-29] MEDS: MELATONIN 5 MG TABLETS PO SCH (23:24)
[2020-08-29] MEDS: THIAMINE HCL 100 MG TABLET (FP) PO SCH (23:25)
[2020-08-30] MEDS ORDERED: chlordiazePOXIDE HCL 10 MG CAPSULE PO PRN
[2020-08-30] MEDS: chlordiazePOXIDE HCL 10 MG CAPSULE PO SCH ×4 (06:17→22:44)
[2020-08-30] MEDS: hydrOXYzine PAMOATE 25 MG CAPSULE (FP) PO SCH ×5 (06:17→22:44)
[2020-08-30] MEDS ORDERED: METHADONE HCL 5 MG TABLET (FOR DETOX USE ONLY) ONE (09:26)
[2020-08-30] MEDS ORDERED: METHADONE HCL 10 MG TABLET (FOR DETOX USE ONLY) ONE (09:27)
[2020-08-30] MEDS ORDERED: METHADONE (DETOX) 10 MG, METHADONE (DETOX) 5 MG PO ONE (10:00)
[2020-08-30] MEDS: MINERAL OIL/PETROLAT/WATER TOPICAL CREAM 113 GM JAR TP SCH ×2 (10:37→22:43)
[2020-08-30] MEDS: PRENATAL VITAMINS W/ FOLIC ACID TABLET (FP) PO SCH (10:37)
[2020-08-30] MEDS: THIAMINE HCL 100 MG TABLET (FP) PO SCH (22:44)
[2020-08-30] MEDS: MELATONIN 5 MG TABLETS PO SCH (22:44)
[2020-08-31] MEDS: chlordiazePOXIDE HCL 10 MG CAPSULE PO SCH ×2 (06:23→17:34)
[2020-08-31] MEDS: hydrOXYzine PAMOATE 25 MG CAPSULE (FP) PO SCH ×5 (06:23→23:35)
[2020-08-31] MEDS ORDERED: METHADONE HCL 10 MG TABLET (FOR DETOX USE ONLY) PO ONE (10:00)
[2020-08-31] MEDS: PRENATAL VITAMINS W/ FOLIC ACID TABLET (FP) PO SCH (10:43)
[2020-08-31] MEDS: MINERAL OIL/PETROLAT/WATER TOPICAL CREAM 113 GM JAR TP SCH ×2 (10:43→23:35)
[2020-08-31 17:11] LABS: EPI CELLS 13 /uL (0-25.1); HYALINE CASTS 1 /uL (0-3.1); URINE APPEARANCE CLEAR; URINE BACTERIA 66 /uL (0-1359); URINE BILIRUBIN NEGATIVE (NEGATIVE); URINE COLOR YELLOW; URINE GLUCOSE (UA) NEGATIVE (NEGATIVE); URINE KETONE NEGATIVE (NEGATIVE); URINE LEUK ESTERASE TRACE (NEGATIVE); URINE NITRITE NEGATIVE (NEGATIVE); URINE PROTEIN NEGATIVE (NEGATIVE); URINE RBC 3 /uL (0-23.9); URINE WBC 14 /uL (0-25.8)
[2020-08-31] MEDS: MELATONIN 5 MG TABLETS PO SCH (23:35)
[2020-08-31] MEDS: THIAMINE HCL 100 MG TABLET (FP) PO SCH (23:36)
[2020-09-01] MEDS ORDERED: chlordiazePOXIDE HCL 10 MG CAPSULE PO ONE (05:00)
[2020-09-01] MEDS ORDERED: METHADONE HCL 5 MG TABLET (FOR DETOX USE ONLY) PO ONE (06:00)
[2020-09-01] MEDS: hydrOXYzine PAMOATE 25 MG CAPSULE (FP) PO SCH (06:26)
[2020-09-01 08:02] VITALS: BP 127/79; PULSE 64; TEMP 98.6
== END 2020-09-01 10:49 | disposition home or self-care (01) | DRG 773 ==
LOC: YASAS 12:58 → Y6N 15:57
PROVIDERS: ADMIT Allergy & Immunology; ATTEND Allergy & Immunology
PROC: HZ2ZZZZ Detoxification Services for Substance Abuse Treatment (ICD-10-PCS; principal; 2020-08-27)
DX: F11.23 Opioid dependence with withdrawal (principal); F10.230 Alcohol dependence with withdrawal, uncomplicated; F14.20 Cocaine dependence, uncomplicated; F19.24 Other psychoactive substance dependence with psychoactive substance-induced mood disorder; M54.5 Low back pain; G89.29 Other chronic pain
CPT/HCPCS: 36415; 80053; 81003; 85027; 86780; C9803; U0003

== ENCOUNTER 2020-12-04 14:49 | Inpatient (IN) | payer OTHER ==
[2020-12-04 16:07] VITALS: BMI 30.3
[2020-12-04] MEDS ORDERED: BISMUTH SUBSALICYLATE 524 MG/30 ML UD PO PRN (17:26)
[2020-12-04] MEDS ORDERED: IBUPROFEN 400 MG TABLET (FP) PO PRN (17:26)
[2020-12-04] MEDS ORDERED: hydrOXYzine PAMOATE 25 MG CAPSULE (FP) PO PRN (17:26)
[2020-12-04] MEDS ORDERED: ACETAMINOPHEN 325 MG TABLET (FP) PO PRN ×2 (17:26)
[2020-12-04] MEDS ORDERED: ONDANSETRON *ODT* 4 MG TABLET SL PRN (17:26)
[2020-12-04] MEDS ORDERED: MAGNESIUM HYDROX 2400MG/30ML ORAL SUSPENSION 30 ML CUP PO PRN (17:26)
[2020-12-04] MEDS ORDERED: MAG HYDROX/AL HYDROX/SIMETH 30 ML UNIT-DOSE CUP PO PRN (17:26)
[2020-12-04] MEDS ORDERED: MENTHOL/PHENOL 1 EACH UD MM PRN (17:26)
[2020-12-04] MEDS ORDERED: MAGNESIUM CITRATE 300 ML BOTTLE PO PRN (17:26)
[2020-12-04] MEDS ORDERED: NICOTINE POLACRILEX 2 MG GUM BUC PRN (17:26)
[2020-12-04] MEDS ORDERED: diazePAM 5 MG TABLET PO PRN ×2 (17:27→17:31)
[2020-12-04] MEDS ORDERED: cloNIDine HCL 0.1 MG TABLET PO PRN (17:28)
[2020-12-04] MEDS: MELATONIN 5 MG TABLETS PO SCH (22:37)
[2020-12-04] MEDS: THIAMINE HCL 100 MG TABLET (FP) PO SCH (22:39)
[2020-12-04] MEDS: diazePAM 5 MG TABLET PO SCH (22:39)
[2020-12-04] MEDS ORDERED: METHADONE HCL 10 MG TABLET (FOR DETOX USE ONLY) PO ONE (23:00)
[2020-12-04] MEDS ORDERED: diazePAM 5 MG TABLET PO SCH (23:00)
[2020-12-05] MEDS: diazePAM 5 MG TABLET PO SCH ×4 (06:34→23:35)
[2020-12-05] MEDS ORDERED: METHADONE HCL 10 MG TABLET (FOR DETOX USE ONLY) PO ONE ×2 (09:23→10:00)
[2020-12-05 10:04] LABS: HEMATOCRIT 36.3 % (35.4-49); HEMOGLOBIN 12.5 GM/dL (11.7-16.9); MCH 30.8 pg (25.7-33.7); MCHC 34.5 g/dl (32.0-35.9); MEAN CELL VOLUME 89.1 fl (80-96); MEAN PLT VOLUME 8.7 fl (7.5-11.1); PLATELET COUNT 182 K/MM3 (134-434); RBC 4.07 M/mm3 (4.00-5.60); RDW 13.3 % (11.9-15.9); WHITE BLOOD COUNT 3.8 K/mm3 (4.0-10.0)
[2020-12-05] MEDS ORDERED: METHADONE HCL 10 MG TABLET (FOR DETOX USE ONLY) ONE (10:23)
[2020-12-05] MEDS ORDERED: METHADONE HCL 5 MG TABLET (FOR DETOX USE ONLY) ONE (10:24)
[2020-12-05 10:26] LABS: CALCIUM 8.6 mg/dL (8.5-10.1)
[2020-12-05 10:27] LABS: ALBUMIN 3.4 g/dl (3.4-5.0); BLOOD UREA NITROGEN 12.2 mg/dL (7-18)
[2020-12-05] MEDS ORDERED: METHADONE (DETOX) 20 MG, METHADONE (DETOX) 5 MG PO ONE (10:30)
[2020-12-05 10:32] LABS: BILIRUBIN,TOTAL 1.1 mg/dL (0.2-1); TOT PROT 6.7 g/dl (6.4-8.2)
[2020-12-05] MEDS: PRENATAL VITAMINS W/ FOLIC ACID TABLET (FP) PO SCH (10:37)
[2020-12-05] MEDS ORDERED: METHADONE PO ONE (12:00)
[2020-12-05] MEDS: MELATONIN 5 MG TABLETS PO SCH (23:35)
[2020-12-05] MEDS: THIAMINE HCL 100 MG TABLET (FP) PO SCH (23:36)
[2020-12-06] MEDS ORDERED: diazePAM 5 MG TABLET PO SCH (06:00)
[2020-12-06] MEDS: diazePAM 5 MG TABLET PO SCH ×2 (06:08→19:22)
[2020-12-06] MEDS ORDERED: METHADONE HCL 10 MG TABLET (FOR DETOX USE ONLY) PO ONE ×2 (10:00)
[2020-12-06] MEDS: PRENATAL VITAMINS W/ FOLIC ACID TABLET (FP) PO SCH (10:39)
[2020-12-06] MEDS: MELATONIN 5 MG TABLETS PO SCH (23:39)
[2020-12-06] MEDS: THIAMINE HCL 100 MG TABLET (FP) PO SCH (23:39)
[2020-12-07] MEDS ORDERED: diazePAM 5 MG TABLET PO ONE (06:00)
[2020-12-07] MEDS ORDERED: diazePAM 5 MG TABLET PO SCH (06:00)
[2020-12-07 08:06] LABS: SARS-CoV-2 NAA Not Detected (Not Detected)
[2020-12-07] MEDS ORDERED: METHADONE HCL 5 MG TABLET (FOR DETOX USE ONLY) PO ONE (10:00)
[2020-12-07] MEDS ORDERED: METHADONE HCL 5 MG TABLET PO ONE (10:00)
[2020-12-07] MEDS: PRENATAL VITAMINS W/ FOLIC ACID TABLET (FP) PO SCH (11:00)
[2020-12-07] MEDS: METHOCARBAMOL 500 MG TABLET PO PRN (17:48)
[2020-12-07] MEDS: THIAMINE HCL 100 MG TABLET (FP) PO SCH (23:28)
[2020-12-07] MEDS: MELATONIN 5 MG TABLETS PO SCH (23:28)
[2020-12-08] MEDS ORDERED: diazePAM 5 MG TABLET PO ONE (06:00)
[2020-12-08] MEDS ORDERED: METHADONE HCL 10 MG TABLET (FOR DETOX USE ONLY) PO ONE (10:00)
[2020-12-08] MEDS: PRENATAL VITAMINS W/ FOLIC ACID TABLET (FP) PO SCH (10:08)
[2020-12-08] MEDS: METHOCARBAMOL 500 MG TABLET PO PRN (17:28)
[2020-12-08] MEDS: MELATONIN 5 MG TABLETS PO SCH (23:03)
[2020-12-08] MEDS: THIAMINE HCL 100 MG TABLET (FP) PO SCH (23:04)
[2020-12-09] MEDS ORDERED: METHADONE HCL 5 MG TABLET (FOR DETOX USE ONLY) PO ONE (06:00)
[2020-12-09 10:46] VITALS: BP 116/81; PULSE 62; TEMP 96.1
== END 2020-12-09 09:50 | disposition home or self-care (01) | DRG 773 ==
LOC: YASAS 14:49 → Y3N 17:33
PROVIDERS: ADMIT Allergy & Immunology; ATTEND Allergy & Immunology
PROC: HZ2ZZZZ Detoxification Services for Substance Abuse Treatment (ICD-10-PCS; principal; 2020-12-04)
DX: F11.23 Opioid dependence with withdrawal (principal); F10.230 Alcohol dependence with withdrawal, uncomplicated; E11.9 Type 2 diabetes mellitus without complications; L85.3 Xerosis cutis; M54.5 Low back pain; G89.29 Other chronic pain; Z86.19 Personal history of other infectious and parasitic diseases
CPT/HCPCS: 36415; 80053; 85027; C9803; U0003; U0005

== ENCOUNTER 2021-09-21 12:59 | Inpatient (IN) | payer OTHER ==
[2021-09-21 15:12] VITALS: BMI 24.8
[2021-09-21] MEDS ORDERED: cloNIDine HCL 0.1 MG TABLET PO PRN (20:23)
[2021-09-21] MEDS ORDERED: chlordiazePOXIDE HCL 25 MG CAPSULE PO PRN (20:23)
[2021-09-21] MEDS ORDERED: MAGNESIUM HYDROX 2400MG/30ML ORAL SUSPENSION 30 ML CUP PO PRN (20:23)
[2021-09-21] MEDS ORDERED: BISMUTH SUBSALICYLATE 524 MG/30 ML PO PRN (20:23)
[2021-09-21] MEDS ORDERED: MAG HYDROX/AL HYDROX/SIMETH 30 ML UNIT-DOSE CUP PO PRN (20:23)
[2021-09-21] MEDS ORDERED: IBUPROFEN 400 MG TABLET (FP) PO PRN (20:23)
[2021-09-21] MEDS ORDERED: METHOCARBAMOL 500 MG TABLET PO PRN (20:23)
[2021-09-21] MEDS ORDERED: LOPERAMIDE HCL 2 MG CAPSULE PO PRN (20:23)
[2021-09-21] MEDS ORDERED: MAGNESIUM CITRATE 300 ML BOTTLE PO PRN (20:23)
[2021-09-21] MEDS ORDERED: ACETAMINOPHEN 325 MG TABLET (FP) PO PRN ×2 (20:23)
[2021-09-21] MEDS ORDERED: methaDONE HCL 10 MG TABLET (FOR DETOX USE ONLY) PO ONE (20:23)
[2021-09-21] MEDS ORDERED: MENTHOL/PHENOL 1 EACH UD MM PRN (20:23)
[2021-09-21] MEDS ORDERED: chlordiazePOXIDE HCL 25 MG CAPSULE PO ONE (20:23)
[2021-09-21] MEDS ORDERED: ONDANSETRON *ODT* 4 MG TABLET SL PRN (20:23)
[2021-09-21] MEDS: MELATONIN 5 MG TABLETS PO SCH (21:46)
[2021-09-21] MEDS: THIAMINE HCL 100 MG TABLET (FP) PO SCH (21:46)
[2021-09-21] MEDS: chlordiazePOXIDE HCL 25 MG CAPSULE PO SCH (21:46)
[2021-09-22] MEDS: chlordiazePOXIDE HCL 25 MG CAPSULE PO SCH ×4 (06:03→22:53)
[2021-09-22] MEDS ORDERED: methaDONE HCL 10 MG TABLET (FOR DETOX USE ONLY) ONE (08:53)
[2021-09-22] MEDS: PRENATAL VITAMINS W/ FOLIC ACID TABLET (FP) PO SCH (11:03)
[2021-09-22 12:40] LABS: HEMATOCRIT 35.1 % (35.4-49); HEMOGLOBIN 11.8 GM/dL (11.7-16.9); MCH 29.5 pg (25.7-33.7); MCHC 33.8 g/dl (32.0-35.9); MEAN CELL VOLUME 87.2 fl (80-96); MEAN PLT VOLUME 8.1 fl (7.5-11.1); PLATELET COUNT 175 10^3/uL (134-434); RBC 4.02 M/mm3 (4.00-5.60); WHITE BLOOD COUNT 3.4 K/mm3 (4.0-10.0)
[2021-09-22 12:46] LABS: ALBUMIN 3.2 g/dl (3.4-5.0); BLOOD UREA NITROGEN 11.2 mg/dL (7-18); CALCIUM 8.6 mg/dL (8.5-10.1)
[2021-09-22 12:49] LABS: CREATININE 0.8 mg/dL (0.55-1.3)
[2021-09-22 12:51] LABS: BILIRUBIN,TOTAL 0.5 mg/dL (0.2-1); TOT PROT 6.4 g/dl (6.4-8.2)
[2021-09-22] MEDS: THIAMINE HCL 100 MG TABLET (FP) PO SCH (22:54)
[2021-09-22] MEDS: MELATONIN 5 MG TABLETS PO SCH (22:54)
[2021-09-23] MEDS: chlordiazePOXIDE HCL 25 MG CAPSULE PO SCH ×4 (06:48→22:42)
[2021-09-23] MEDS ORDERED: methaDONE HCL 10 MG TABLET (FOR DETOX USE ONLY) PO ONE (10:00)
[2021-09-23] MEDS: PRENATAL VITAMINS W/ FOLIC ACID TABLET (FP) PO SCH (10:33)
[2021-09-23 16:07] LABS: SARS-CoV-2 NAA Not Detected (Not Detected)
[2021-09-23] MEDS: THIAMINE HCL 100 MG TABLET (FP) PO SCH (22:41)
[2021-09-23] MEDS: MELATONIN 5 MG TABLETS PO SCH (22:42)
[2021-09-24] MEDS ORDERED: chlordiazePOXIDE HCL 10 MG CAPSULE PO PRN
[2021-09-24] MEDS: chlordiazePOXIDE HCL 10 MG CAPSULE PO SCH ×4 (06:03→22:18)
[2021-09-24] MEDS ORDERED: methaDONE HCL 10 MG TABLET (FOR DETOX USE ONLY) ONE (09:32)
[2021-09-24] MEDS: PRENATAL VITAMINS W/ FOLIC ACID TABLET (FP) PO SCH (10:19)
[2021-09-24] MEDS: hydrOXYzine PAMOATE 25 MG CAPSULE (FP) PO PRN ×2 (17:45→22:17)
[2021-09-24 21:12] VITALS: TEMP 97.3
[2021-09-24] MEDS: THIAMINE HCL 100 MG TABLET (FP) PO SCH (22:17)
[2021-09-24] MEDS: MELATONIN 5 MG TABLETS PO SCH (22:17)
[2021-09-25] MEDS ORDERED: chlordiazePOXIDE HCL 10 MG CAPSULE PO SCH (05:00)
[2021-09-25 09:12] VITALS: BP 119/86; PULSE 71
[2021-09-25] MEDS ORDERED: methaDONE HCL 10 MG TABLET (FOR DETOX USE ONLY) PO ONE (10:00)
[2021-09-26] MEDS ORDERED: chlordiazePOXIDE HCL 10 MG CAPSULE PO ONE (05:00)
== END 2021-09-25 10:12 | disposition home or self-care (01) | DRG 773 ==
LOC: YASAS 12:59 → Y6N 19:43 → EDBD 19:43
PROVIDERS: ADMIT Allergy & Immunology; ATTEND Allergy & Immunology
PROC: HZ2ZZZZ Detoxification Services for Substance Abuse Treatment (ICD-10-PCS; principal; 2021-09-21)
DX: F11.23 Opioid dependence with withdrawal (principal); F10.230 Alcohol dependence with withdrawal, uncomplicated; F10.220 Alcohol dependence with intoxication, uncomplicated; F14.20 Cocaine dependence, uncomplicated; B18.2 Chronic viral hepatitis C; D72.819 Decreased white blood cell count, unspecified; H55.00 Unspecified nystagmus
CPT/HCPCS: 36415; 80053; 85027; 86780; C9803; Q0162; U0003; U0005

== ENCOUNTER 2021-11-19 13:04 | Inpatient (IN) | payer OTHER ==
[2021-11-19] MEDS ORDERED: BISMUTH SUBSALICYLATE 262 MG/15 ML BTL PO PRN (14:09)
[2021-11-19] MEDS ORDERED: BENZOCAINE/MENTHOL (CHLORASEPTIC ) LOZENGE MM PRN (14:09)
[2021-11-19] MEDS ORDERED: chlordiazePOXIDE HCL 25 MG CAPSULE PO PRN (14:09)
[2021-11-19] MEDS ORDERED: ACETAMINOPHEN 325 MG TABLET (FP) PO PRN ×2 (14:09)
[2021-11-19] MEDS ORDERED: methaDONE HCL 10 MG TABLET (FOR DETOX USE ONLY) PO ONE (14:09)
[2021-11-19] MEDS ORDERED: LOPERAMIDE HCL 2 MG CAPSULE PO PRN (14:09)
[2021-11-19] MEDS ORDERED: MAGNESIUM CITRATE 300 ML BOTTLE PO PRN (14:09)
[2021-11-19] MEDS ORDERED: DICYCLOMINE HCL 10 MG CAPSULE PO PRN (14:09)
[2021-11-19] MEDS ORDERED: METHOCARBAMOL 500 MG TABLET PO PRN (14:09)
[2021-11-19] MEDS ORDERED: ONDANSETRON *ODT* 4 MG TABLET SL PRN (14:09)
[2021-11-19] MEDS ORDERED: MAG HYDROX/AL HYDROX/SIMETH 30 ML UNIT-DOSE CUP PO PRN (14:09)
[2021-11-19] MEDS ORDERED: IBUPROFEN 400 MG TABLET (FP) PO PRN (14:09)
[2021-11-19] MEDS ORDERED: cloNIDine HCL 0.1 MG TABLET PO PRN (14:09)
[2021-11-19] MEDS ORDERED: MAGNESIUM HYDROX 2400MG/30ML ORAL SUSPENSION 30 ML CUP PO PRN (14:09)
[2021-11-19 14:26] VITALS: BMI 26.5
[2021-11-19] MEDS: chlordiazePOXIDE HCL 25 MG CAPSULE PO SCH ×2 (18:08→22:13)
[2021-11-19] MEDS: PRENATAL VITAMINS W/ FOLIC ACID TABLET (FP) PO SCH (18:09)
[2021-11-19] MEDS: hydrOXYzine PAMOATE 25 MG CAPSULE (FP) PO SCH ×2 (18:11→22:13)
[2021-11-19] MEDS: MELATONIN 5 MG TABLETS PO SCH (22:14)
[2021-11-19] MEDS: THIAMINE HCL 100 MG TABLET (FP) PO SCH (22:14)
[2021-11-20] MEDS: hydrOXYzine PAMOATE 25 MG CAPSULE (FP) PO SCH ×5 (06:35→22:07)
[2021-11-20] MEDS: chlordiazePOXIDE HCL 25 MG CAPSULE PO SCH ×4 (06:35→22:11)
[2021-11-20] MEDS ORDERED: methaDONE HCL 10 MG TABLET (FOR DETOX USE ONLY) ONE (08:52)
[2021-11-20] MEDS: PRENATAL VITAMINS W/ FOLIC ACID TABLET (FP) PO SCH (10:16)
[2021-11-20 12:18] LABS: CALCIUM 9.1 mg/dL (8.5-10.1)
[2021-11-20 12:19] LABS: ALBUMIN 3.5 g/dl (3.4-5.0); BLOOD UREA NITROGEN 13.4 mg/dL (7-18)
[2021-11-20 12:22] LABS: CREATININE 0.9 mg/dL (0.55-1.3); HEMATOCRIT 38.3 % (35.4-49); HEMOGLOBIN 12.7 GM/dL (11.7-16.9); MCH 28.9 pg (25.7-33.7); MCHC 33.2 g/dl (32.0-35.9); MEAN CELL VOLUME 87.1 fl (80-96); MEAN PLT VOLUME 8.3 fl (7.5-11.1); PLATELET COUNT 208 10^3/uL (134-434); RBC 4.39 M/mm3 (4.00-5.60); RDW 14.7 % (11.9-15.9); WHITE BLOOD COUNT 2.6 K/mm3 (4.0-10.0)
[2021-11-20 12:24] LABS: BILIRUBIN,TOTAL 0.8 mg/dL (0.2-1)
[2021-11-20] MEDS: THIAMINE HCL 100 MG TABLET (FP) PO SCH (22:07)
[2021-11-20] MEDS: MELATONIN 5 MG TABLETS PO SCH (22:07)
[2021-11-21] MEDS: TRIMETHOBENZAMIDE HCL 200MG/2ML INJ IM PRN ×2 (07:40→15:33)
[2021-11-21] MEDS: chlordiazePOXIDE HCL 25 MG CAPSULE PO SCH ×3 (07:41→18:28)
[2021-11-21] MEDS: hydrOXYzine PAMOATE 25 MG CAPSULE (FP) PO SCH ×4 (07:41→18:42)
[2021-11-21] MEDS ORDERED: methaDONE HCL 10 MG TABLET (FOR DETOX USE ONLY) PO ONE (10:00)
[2021-11-21] MEDS: PRENATAL VITAMINS W/ FOLIC ACID TABLET (FP) PO SCH (10:55)
[2021-11-21 12:37] VITALS: BP 121/64; PULSE 74
[2021-11-21 14:06] VITALS: TEMP 98
[2021-11-21 14:12] LABS: SARS-CoV-2 NAA Not Detected (Not Detected)
[2021-11-22] MEDS ORDERED: chlordiazePOXIDE HCL 10 MG CAPSULE PO PRN
[2021-11-22] MEDS ORDERED: chlordiazePOXIDE HCL 10 MG CAPSULE PO SCH (05:00)
[2021-11-23] MEDS ORDERED: chlordiazePOXIDE HCL 10 MG CAPSULE PO SCH (05:00)
[2021-11-23] MEDS ORDERED: methaDONE HCL 10 MG TABLET (FOR DETOX USE ONLY) PO ONE (10:00)
[2021-11-24] MEDS ORDERED: chlordiazePOXIDE HCL 10 MG CAPSULE PO ONE (05:00)
== END 2021-11-21 18:28 | disposition home or self-care (01) | DRG 773 ==
LOC: YASAS 13:04 → Y3N 15:08
PROVIDERS: ADMIT Allergy & Immunology; ATTEND Allergy & Immunology
PROC: HZ2ZZZZ Detoxification Services for Substance Abuse Treatment (ICD-10-PCS; principal; 2021-11-19)
DX: F11.23 Opioid dependence with withdrawal (principal); F10.230 Alcohol dependence with withdrawal, uncomplicated; F14.20 Cocaine dependence, uncomplicated; D72.819 Decreased white blood cell count, unspecified; L85.3 Xerosis cutis; M54.50 Low back pain, unspecified; G89.29 Other chronic pain; R11.2 Nausea with vomiting, unspecified
CPT/HCPCS: 36415; 80053; 85027; 86780; 87811; C9803-CS; Q0162; U0003; U0005